=== PATIENT | female | born 1955 | race Caucasian/White ===

== ENCOUNTER 2024-12-11 15:23 | Outpatient (CLI) | payer OTHER, SELFPAY ==
--- OUTSIDE RECORDS SUMMARY | 2024-11-04 07:45 | XMS_ITS ---
Author Organization [facility] [place], Address [address] [place] [address] Care Team Providers Care Workers Compensation Legal Secretary Name Role Phone Austin Magaña MD Primary Care Provider Stanley Rizvi Unavailable [phone] REASON FOR VISIT Treadmill nuclear Encounters Encounter Location Date Provider Diagnosis [facility] [place] [address] [place] [address] 11/04/2024 Stanley Wellington Plan Of Treatment Next Appt Details Provider Name:Stanley ornelas, 07/27/2025 03:00:00 PM, [address] [place], [address], Progress Notes * Nichelle LUIS SDOB: [birth year] (69 yo F)Acc No.[id number]:11/04/2024 Patient: Nichelle SALMERON Provider: Latisha WELLINGTON MD :1955 A ge:69 Y S ex:Female Date:11/04/2024 Address:[address] [place], [place] Pcp:Austin Magaña MD * Images: * Electronic signature of Stanley Wellington MD on 12/11/2024 at 03:31 PM CDT Sign off status: Pending * Provider: Latisha WELLINGTON MD Date: 11/04/2024 Generated for Wesley ibrahim/Dorie/Kamillaitting on: 0 12/11/2024 03:31 PM CDT
--- OUTSIDE RECORDS SUMMARY | 2024-12-11 15:31 | XMS_ITS | Encounter Summary ---
Author Organization [facility] Address [facility] [place] [address] Care Team Providers Care Reexaminer Name Role Phone Austin Magaña MD Primary Care Provider Kiran Canales MD Unavailable Unavailabl Suellen Bear MD Unavailable Peter Nuñez MD Unavailable Unavailable Encounter Details Date Type Department Care Team (Late st Contact Info) Description 06/23/2017 Abstract [facility] [address] [place] [address] , Generic Conversion, Social History Tobacco Use Types Packs/Day Years Used Date Smoking Tobacco: Former Cigarettes Q uit: 1986 Smokeless Tobacco: Never Alcohol Use Standard Drinks/Week Comments Yes 0 (1 standard drink = 0.6 oz pur e alcohol) Drinks rare wine Comments Unknown Sex and Gender Information Value Date Recorded Sex Assigned at Not on file Legal Sex Female 9:30 PM CDT Gender Identity Not on file Sexual Orientation Not on file 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, 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, 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 Not on f ile Not on file Not on file documented as of this encounter Plan of Treatment Not on file documented as of this encounter Visit Diagnoses Not on filedocumented in this encounter Care Teams Reexaminer Relationship Specialty Start Date End Date Austin Magaña MD [address] [place], [place] [address] PCP - General INTERNAL MEDICINE 10/20/15 Kiran Canales MD [address] Carpenter Assembler CARDIOVASCULAR DISEASE 10/20/15 Suellen Kennedy MD [address] [place] [address] EP Carpenter Assembler CLINICAL CARDIAC ELECTROPHYSIOLOGY 10/20/15 Peter Nuñez MD [address] [place] [address] Consulting Physician ENDOCRINOLOGY 10/25/18 documented as of this encounter
--- OUTSIDE RECORDS SUMMARY | 2024-12-11 15:31 | XMS_ITS | Patient Health Record ---
Author Organization [facility], Address [address] [place] [address] Care Team Providers Care Refresh Technician Name Role Phone Austin Magaña MD Primary Care Provider Stanley Rizvi Unavailable [phone] Ada Rodriguez Unavailable [phone] Allergies Allergen (clinical drug ingredient) Drug/Non Drug Allergy documented on EMR Reaction Allergy Type Onset Date Status Substance with sulfonamide structure and antibacterial mechanism of action (substance) sulfa (uncoded) Unknown Allergy Active angiotensin-converting enzyme inhibitor (FN) GRETCHEN Inhibitors chronic cough Drug Allergy Act nena Penicillin Unknown Drug Allergy Active Reason For Referral No Information Medications Medication SIG (Take, Route, Frequency, Duration) Notes Start Date End Date Status cloNIDine HCl 0.1 MG 1 tablet Orally Once a day PRN Not-Taking Potassium Chloride ER 20 MEQ 1 tablet with food Orally Once a day Active metFORMIN HCl 500 MG 1 tablet with a meal Orally Once a day; Duration: 30 day(s) Active CeleBREX 200 MG 1 capsule with food Orally Once a day; Duration: 30 day(s) Active Restasis 0.05 % 1 drop into affected eye Ophthalmic Twice a day Active Krill Oil 1000 MG as directed Orally Not-Taking Vitamin B12 1000 MCG 1 tablet Orally Once a day; Duration: 30 day(s) Active Irbesartan 300 MG 1 tablet Orally Once a day; Duration: 30 day(s) Active Hair Skin and Nails Formula - as directed Orally Not-Takin g Metoprolol Succinate ER 50 MG 1 tablet Orally Once a day Active Lasix 20 MG 1 tablet Orally Once a day; Duration: 30 day(s) Active Magnesium Oxide 400 MG 1 tablet as needed Orally Twice a day Active Colace 100 MG 1 capsule as needed Orally Once a day; Duration: 30 day(s) Active Multivitamin 1 Tablet Orally Once a day Active Vitamin D 5000 UNITS 1 Tablet Orally Once a day three times a week Active Social History Tobacco Use: Social History Observation Description Date Details (start date - stop date) Never Smoker NA - NA Tobacco Use/Smoking Question Answer Notes Are you a nonsmoker Additional Findings: Tobacco Non-User Does not u se moist powdered tobacco Section Notes: 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 [facility] None smoker 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 [facility] None smoker 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 [facility] None smoker Problems Problem Type SNOMED Code ICD Code Onset Dates Problem Status W/U Status Risk Notes Problem Disorder due to type 2 diabetes mellitus (519965731) Type 2 diabetes mellitus with unspecified complications (E11.8) Active confirmed Problem Essential hypertension (06791344) Essential (primary) hypertension (I10) Active confirmed Problem Paroxysmal atrial fibrillation (166423103) Paroxysmal atrial fibrillation (I48.0) Active confirmed Problem Chest pain (79358256) Chest pain, unspecified (R07.9) Active confirmed Problem Angina pectoris (903839259) Other forms of angina pectoris (I20.89) Active confirmed Vital Signs Heart Rate 66 /min 11/07/2024 Blood pressure diastolic 62 mm Hg 11/07/2024 Height 5ft 4in in 11/07/2024 Blood pressure systolic 132 mm Hg 11/07/2024 Weight 150 lbs 11/07/2024 BMI 25.74 kg/m2 11/07/2024 Encounters Encounter Location Date Provider Diagnosis [facility] [place], [address] [place] [address] 11/04/2024 [facility] [place], [address] [place] [address] 07/14/2024 [facility] Paroxysmal atrial fibrillation I48.0 ; Type 2 diabetes mellitus with unspecified complications E11.8 and Essential (primary) hypertension I10 [facility] [place], [address] [place] [address] 11/07/2024 Ada Rodriguez Paroxysmal atrial fibrillation I48.0 ; Type 2 diabetes mellitus with unspecified complications E11.8 and Essential (primary) hypertension I10 [facility] [place] [address] [place] [address] 08/18/2024 [facility] [place] [address] [place] [address] 09/30/2024 [facility] [place] [address] [place] [address] 10/02/2024 [facility] [place] [address] [place] [address] 11/05/2024 [facility] [place] [address] [facility] [place] [address] 11/07/2024 [facility] [place] [address] [place] [address] 11/14/2024 [facility] Assessments Encounter Date Diagnosis (ICD Code) Assessment Notes Treatment Notes Treatment Clinical Notes Section Notes 07/14/2024 Paroxysmal atrial fibrillation (ICD-10 - I48.0) Paroxysmal atrial fibrillation She is s/p ablation in 2013 and repeat ablation 04/[address] [facility] Echo 04/23/2023 showed EF 60% Left atrium moderately dilated right atirum mildly dilated Trace AI Trace TR and MR She reports no chest pain Only 2 short episodes of atrial fib over last months longest 1 hour and 15 minutes She prefers to remain off anticoagulation at this time 11/07/2024 Paroxysmal atrial fibrillation (ICD-10 - I48.0) Paroxysmal atrial fibrillation She is s/p ablation in 2013 and repeat ablation 04/[address] [facility] Echo 04/23/2023 showed EF 60% Left atrium moderately dilated right atirum mildly dilated Trace AI Trace TR and MR She reports no chest pain Only 2 short episodes of atrial fib over last months longest 1 hour and 15 minutes She prefers to remain off anticoagulation at this time 11/07/2024 Type 2 diabetes mellitus with unspecified complications (ICD-10 - E11.8) 07/14/2024 Type 2 diabetes mellitus with unspecified complications (ICD-10 - E11.8) 07/14/2024 Essential (primary) hypertension (ICD-10 - I10) Hypertension BP mildly elevated this office visit but reports lower BP at home We will keep monitoring for now We will coronary calcium score at [facility] 11/07/2024 Essential (primary) hypertension (ICD-10 - I10) Hypertension Treadmill nuclear stress 11/04/24: small defect during stress that is a reversible perfusion abnormality of mild intensity in the mid anterior and paical anterior segments consistent with ischemia, EF 72% Left heart catheterization recommended. Risks and benefits were discussed, and the patient verbalized understanding and consented to proceed with the procedure. Plan Of Treatment Next Appt Details Provider Name:Stanley ornelas, 07/27/2025 03:00:00 PM, [address] [place], [address], Insurance Providers Payer Name Payer Address Payer Phone Subscriber Number Group Number Insured Name Patient Relationship to Insured Coverage Start Date Coverage End Date [employer] [address] [address] [place] [address] [id number] Rosalva, Nichelle Self - patient is the insured Medical (General) History Medical History History ICD Code Other forms of angina pectoris I20.89 Surgical History Surgery Date(Month/Year) Cholecystectomy, gastric sleeve surgery, Right TKA and left TKA
--- OUTSIDE RECORDS SUMMARY | 2024-12-11 15:31 | XMS_ITS | Clinical Summary ---
Author Organization [facility] Address [facility] [place] [address] Care Team Providers Care Vocational Childcare Teacher Name Role Phone Austin Magaña MD Primary Care Provider [phone] Kiran Canales MD Unavailable UnavailSuellen Huston MD Unavailable Peter Nuñez MD Unavailable Unavailable Allergies Active Allergy Reactions Criticality Noted Date Comments Brad Inhibitors Cough 11/04/2015 Amiodarone Unknown 05/15/2016 tremors Carvedilol Unknown 03/27/2019 Omeprazole Unknown High 05/12/2016 Joint pain Penicillins Swelling,Itching High 08/06/2013 Ranitidine Unknown High 05/12/2016 Joint pain Spironolactone Myalgias 11/15/2018 Sulfa Antibiotics Swelling,Itching High 08/06/2013 Medications docusate sodium (COLACE) 100 MG capsule Colace (docusate sodium) capsule 100 mg; 1 capsule by mouth once a day; 0; 03-Mar-2015; Active 03/03/2015 Active Lutein (KP LUTEIN) 6 MG Cap Take 1 tablet by mouth daily. 01/28/2014 Active magnesium oxide 400 (241.3 MG) MG tablet Take 1 tablet by mouth 2 (two) times daily. 12/11/2012 Active diclofenac sodium (VOLTAREN) 1 % Gel Voltaren (diclofenac sodium) Gel 1%; applied to knees as needed; 0; 0; 07-Sep-2011; Active 09/07/2011 Active VICTOZA 18 MG/3ML injection ADM 1.2 MG SC QD 1 10/11/2018 Active metFORMIN 500 MG tablet Take 1 tablet (500 mg total) by mouth daily with breakfast. 60 tablet 11/15/2018 Active IRBESARTAN 300 MG tablet TAKE 1 TABLET(300 MG) BY MOUTH DAILY 90 tablet 3 01/14/2019 Active biotin 89217 MCG tablet Take 10,000 mcg by mouth daily. Active cholecalciferol (VITAMIN D3) 125 MCG (5000 UT) Tab Take 5,000 Units by mouth. Mon - Fri Active Cyanocobalamin [address] under the tongue 3 (three) times a week. Active furosemide 20 MG tablet Take 20 mg by mouth 2 (two) times daily. Active potassium chloride CR 20 MEQ tablet Take 20 mEq by mouth daily. Active metoprolol succinate ER 25 MG 24 hr tablet Take 1 tablet (25 mg total) by mouth 2 (two) times daily. 180 tablet 3 04/01/2019 Active dilTIAZem CD 180 MG 24 hr capsule Take 1 capsule (180 mg total) by mouth daily. 90 capsule 3 04/01/2019 Active amLODIPine 5 MG tablet Take 1 tablet (5 mg total) by mouth daily. 90 tablet 4 02/23/2020 Active Active Problems Problem Noted Date Diagnosed Date Arthritis 04/04/2018 DM (diabetes mellitus) ([facility]) 018 Primary osteoarthritis of both knees 02/05/2018 Hypertension 04/24/2017 Paroxysmal atrial fibrillation ([facility]) 04/24/2017 Overview (04/24/2017): refractory to amiodarone therapy, s/p left atrial ablation and pulmonary vein isolation on 02/19/2014 and redo on 04/13/2016 Low back pain 03/16/2016 Sacroiliac dysfunction 03/16/2016 Chronic anticoagulation 03/08/2016 PVC (premature ventricular contraction) 02/21/20 16 PAC (premature atrial contraction) 02/21/2016 Atrial tachycardia ([facility]) 11/04/2015 Persistent atrial fibrillation ([facility]) 09/29/2015 Heart palpitations 09/29/2015 Obesity 11/23/2014 Resolved Problems Problem Noted Date Diagnosed Date Resolved Date Pre-operative cardiovascular examination 04/04/2018 12/19/2019 Family History Medical History Relation Comments Coronary artery disease Brother Heart Disease Brother AICD Hypertension Brother with hypertensiv e heart disease Lung Cancer Father Heart Disease Mother atrial fibrillat ion Diabetes Sister 1 Hypertension Sister 1 Kidney Disease Sister 1 Kidney Stones Sister 2 Relation Status Comments Brother Father (Age 58) Mother (Age 76) Sister 1 (Age 62) Sister 2 Social History Tobacco Use Types Packs/Day Years Used Date Smoking Tobacco: Former Cigarettes Q uit: 1985 Smokeless Tobacco: Never Alcohol Use Standard Drinks/Week [...] ile Not on file Not on file Last Filed Vital Signs Vital Sign Reading Time Taken Comments Blood Pressure 124/78 03/30/2020 12:39 PM ENVIRONMENTAL ANALYST Pulse 68 03/30/2020 12:39 PM ENVIRONMENTAL ANALYST Temperature - - Respiratory Rate 15 03/30/2020 12:39 PM ENVIRONMENTAL ANALYST Oxygen Saturation - - Inhaled Oxygen Concentration - - Weight 92.1 kg (203 lb) 03/30/2020 12:39 PM ENVIRONMENTAL ANALYST Height 160 cm (5' 3) 03/30/2020 12:39 PM ENVIRONMENTAL ANALYST Body Mass Index 35.96 03/30/2020 12:39 PM ENVIRONMENTAL ANALYST Plan of Treatment Health Maintenance Due Date Last Done Comments Colorectal Cancer Screening Colonoscopy (10 Years) 1955 Kidney Health Evaluation 1955 Diabetes: Retinopathy Eye Exam 1974 Hepatitis C 1974 DTaP, Tdap and Td Vaccines ( 1 - Tdap) 07/05/1975 Pneumococcal Vaccine: 50+ Years (1 of 2 - PCV) 07/05/1975 Mammogram Screening 1996 Zoster Vaccines (1 of 2) 2006 Lipid Panel 03/26/2015 03/26/2014 RSV Immunization or 60+ Years (1 - Risk 60-74 years 1-dose series) 2016 Hemoglobin A1C 06/30/2020 01/01/2020, 06/07/2018 COVID-19 Vaccine (2 - 2023-2 5 season) 2023 03/24/2020 Dexa Scan (General) Completed 11/21/2018 Meningococcal B Vaccine Aged Out No l onger eligible based on patient's age to complete this topic Meningococcal Vaccine Aged Out No jose beth eligible based on patient's age to complete this topic RSV Immunizations Under 20 Months Aged Out No longer eligible b ased on patient's age to complete this topic Procedures Procedure Name Priority Date/Time Associated Diagnosis Comments LIPID PANEL Routine 03/26/2014 12:00 AM ENVIRONMENTAL ANALYST from Last 3 Months or Most Recently Relevant to Health Maintenance Results * LIPID PANEL (03/26/2014 12:00 AM ENVIRONMENTAL ANALYST) TRIGLYCERIDES 86 0 - 150 mg/dl [employer] TO EPIC CONVERSION CHOLESTEROL 195 0 - 200 mg/dl [employer] TO EPIC CONVERSION HDL 60 40 - 59 mg/dl [employer] TO EPIC CONVERSION LDL CONVERSION 118 0 - 100 mg/dl [employer]IN[employer] TO EPIC CONVERSION CHOL/HDL RATIO 3.3 <4.0 (Calc) MEDIN[employer] TO EPIC CONVERSION VLDL CALCULATION 17 <31 mg/dL MED INFORMATIX TO EPIC CONVERSION 03/26/2014 03/26/2014 Narrative MEDINFORMATIX TO EPIC CONVERSION - 04/14/2014 8:08 AM ENVIRONMENTAL ANALYST Reviewed by DIMPLE Apr 14 2014 8:08:33:000AM us Generic Conversion Md [facility] Final R esult MEDINFORMATIX TO EPIC CONVERSION from Last 3 Months or Most Recently Relevant to Health Maintenance Insurance [employer] Care Teams Vocational Childcare Teacher Relationship Specialty Start Date End Date Austin Magaña MD [address] [place] [address] PCP - General INTERNAL MEDICINE 10/20/15 Kiran Canales MD [address] [place] [address] [employer] Virtual Assistant CARDIOVASCULAR DISEASE 10/20/15 Suellen Kennedy MD [address] [place] [address] EP Virtual Assistant CLINICAL CARDIAC ELECTROPHYSIOLOGY 10/20/15 Peter Nuñez MD [address] [place] [address] Consulting Physician ENDOCRINOLOGY 10/25/18
--- OUTSIDE RECORDS SUMMARY | 2024-12-11 15:31 | XMS_ITS | Encounter Summary ---
Author Organization [facility] Address [facility] [place] [address] Care Team Providers Care Marketing Operations Specialist Name Role Phone Austin Magaña MD Primary Care Provider Kiran Canales MD Unavailable Unavailabl Suellen Bear MD Unavailable Peter Nuñez MD Unavailable Unavailable Encounter Details Date Type Department Care Team (Late st Contact Info) Description 03/02/2015 Abstract [facility] [place] [address] [place] [address] Kiran Canales MD Social History Tobacco Use Types Packs/Day Years [...] on filedocumented in this encounter Care Teams Marketing Operations Specialist Relationship Specialty Start Date End Date Austin Magaña MD [address] [place], [place] [address] PCP - General INTERNAL MEDICINE 10/20/15 Kiran Canales MD [address] Director Of Retail Operations CARDIOVASCULAR DISEASE 10/20/15 Suellen Kennedy MD [address] [place] [address] EP Director Of Retail Operations CLINICAL CARDIAC ELECTROPHYSIOLOGY 10/20/15 Peter Nuñez MD [address] [place] [address] Consulting Physician ENDOCRINOLOGY 10/25/18 documented as of this encounter
--- OUTSIDE RECORDS SUMMARY | 2024-12-11 15:31 | XMS_ITS | Encounter Summary ---
Author Organization [facility] Address [facility] [place] [address] Care Team Providers Care Multi Operation Machine Operator Name Role Phone Austin Magaña MD Primary Care Provider Kiran Canales MD Unavailable Unavailabl Suellen Bear MD Unavailable Peter Nuñez MD Unavailable Unavailable Encounter Details Date Type Department Care Team (Late st Contact Info) Description 11/02/2015 Abstract [facility] [place] [address] [place] [address] Kiran Canales MD Social History [...] on filedocumented in this encounter Care Teams Multi Operation Machine Operator Relationship Specialty Start Date End Date Austin Magaña MD [address] [place], [place] [id number] PCP - General INTERNAL MEDICINE 10/20/15 Kiran Canales MD [address] Grab Driver CARDIOVASCULAR DISEASE 10/20/15 Suellen Kennedy MD [address] [place] [address] EP Grab Driver CLINICAL CARDIAC ELECTROPHYSIOLOGY 10/20/15 Peter Nuñez MD [address] [place] [address] Consulting Physician ENDOCRINOLOGY 10/25/18 documented as of this encounter
--- OUTSIDE RECORDS SUMMARY | 2024-12-11 15:31 | XMS_ITS | Encounter Summary ---
Author Organization [facility] Address [address] [place] [address] Care Team Providers Care Vocational Rehabilitation Specialist Name Role Phone Austin Magaña MD Primary Care Provider [phone] Hazel Butler DO Unavailable [phone] Kel Gonzalez MD Unavailable Reason for Visit * Reason Onset Date Comments Results 11/11/2024 Encounter Details Date Type Department Care Team (Late st Contact Info) Description 11/11/2024 Results Follow-Up [facility] [address] [place] [address] Hazel Butler DO [address], [place] [id number] Results Social History Tobacco Use Types Packs/Day Years Used Date Smoking Tobacco: Former Cigarettes Q uit: 04/09/1986 Smokeless Tobacco: Never Alcohol Use Standard Drinks/Week Comments Yes 0 (1 standard drink = 0.6 oz pur e alcohol) rare PHQ-2 Answer Date Recorded Patient Health Questionnaire-2 Score 0 10/06/2024 Comments No Sex and Gender Information Value Date Recorded Sex Assigned at Female 02/28/2020 8:07 AM SENIOR DESIGN ENGINEERING SPECIALIST Legal Sex Female 5:16 AM SENIOR DESIGN ENGINEERING SPECIALIST Gender Identity Female 02/28/2020 8:08 AM SENIOR DESIGN ENGINEERING SPECIALIST Sexual Orientation Straight 02/28/2020 8: 07 AM SENIOR DESIGN ENGINEERING SPECIALIST documented as of this encounter Functional Status * Is person deaf or have serious hearing difficulty? Answer Date of Assessment Author No 09/12/2018 11:23 AM CDT Pravin Arvizu RN * Is person blind or have serious difficulty seeing? Answer Date of Assessment Author No 09/12/2018 11:23 AM CDT Pravin Arvizu RN * Does person have serious difficulty walking/climbing stairs? Answer Date of Assessment Author No 09/12/2018 11:23 AM CDT Pravin Arvizu RN * Does person have difficulty dressing/bathing? Answer Date of Assessment Author No 09/12/2018 11:23 AM CDT Pravin Arvizu RN * Does person have difficulty doing errands alone? Answer Date of Assessment Author No 09/12/2018 11:23 AM CDT Pravin Arvizu RN documented as of this encounter Mental Status * Does person have difficulty concentrating/remembering/making decisions? Answer Entry Date Author No 09/12/2018 11:23 AM [place] Pravin Arvizu RN documented in this encounter Progress Notes * Hazel Butler DO - 11/11/2024 8:14 AM CDT Please notify pt test results . Vitamin B1 is normal. B12 folate normal. Ferritin normal. A1c normal. Iron and transferrin normal. documented in this encounter Plan of Treatment Upcoming Encounters Date Type Department Care Team (Late st Contact Info) Description 01/05/2025 11:30 AM CDT Office Visit [facility] [address] [place] [address] Haezl Butler DO [address] [place] [address] 01/26/2025 3:20 PM CDT Office Visit [facility] - Endocrinology [address] Kw[address] [phone] Kel Gonzalez MD [address] [place] [phone] documented as of this encounter Visit Diagnoses Not on filedocumented in this encounter Care Teams Vocational Rehabilitation Specialist Relationship Specialty Start Date End Date Austin Magaña MD [address] [facility] [address] [place] [id number] PCP - General Internal Medicine 07/11/13 Hazel Butler DO [address], [place] [phone] PCP - Att[facility] [facility] 04/09/21 Kel Gonzalez MD [address] [phone] Physician Endocrinology 11/07/24 documented as of this encounter
--- OUTSIDE RECORDS SUMMARY | 2024-12-11 15:31 | XMS_ITS | Clinical Summary ---
Author Organization [facility] Address [address] [place] [address] Care Team Providers Care Behavioral Scientist Name Role Phone Austin Magaña MD Primary Care Provider [phone] Hazel Butler DO Unavailable [phone] Kel Gonzalez MD Unavailable Source Comments [facility],non-owned Affiliates and Associated Physician Practices is amultiple site organization consisting of ambulatory clinics and hospital sitesin [place], [place] and [place]. This disclosure is being madepursuant to the Care Everywhere program and may not contain all information available regarding this patient. Last updated 17.[facility] Allergies Active Allergy Reactions Criticality Noted Date Comments Brad Inhibitors Cough 11/04/2015 Amiodarone Unknown 07/03/2018 tremors Carvedilol Other 03/27/2019 Penicillins Itching High 08/06/2013 Spironolactone Myalgias 11/15/2018 Sulfa Drugs Itching High 08/06/2013 Medications * Be aware that medications may not be up to date on this document. Alwaysverify current medications with the patient. Magnesium 400 MG CAPS Take 1 Cap by mouth 2 times daily after meals. 4 Active Cholecalcifero l (VITAMIN D-3 PO) Take 5,000 Units by mouth once daily Taking 3 times weekly Active docusate sodium (COLACE) 100 MG capsule Take 1 (one) capsule by mouth once daily Active metFORMIN (GLUCOPHAGE) 500 MG tablet once daily 2 9 Active furosemide (LASIX) 20 MG tablet Take 1 (one) tablet by mouth once daily 1 9 Active irbesartan (AVAPRO) 300 MG tablet 1 (one) tablet once daily 0 9 Active celecoxib (CELEBREX) 200 MG capsule Take 1 capsule by mouth 2 times daily 60 capsule 5 0 Active Restasis 0.05 % ophthalmic suspension 3 Active Multiple Vitamin (MULTIVITAMIN ADULT PO) Take by mouth once daily Alive Brand Active amoxicillin (Amoxil) 500 MG capsule 4 Active potassium chloride ER (K-TAB) 20 MEQ tablet Take 1 (one) tablet by mouth once daily 4 Active metoprolol succinate XL 24hr (Toprol XL) 50 MG tablet TAKE ONE TABLET BY MOUTH TWICE DAILY HOLD IF SYSTOLIC BLOOD PRESSURE IS LESS THAN 120 AND/OR HEART RATE IS LESS THAN 56 4 Active cinacalcet (Sensipar) 30 MG tablet Take 1 (one) tablet by mouth 2 times daily with morning and evening meal 180 tablet 4 Active tirzepatide (Mounjaro) 15 MG/0.5ML injectionIndic ations:Type 2 diabetes mellitus with obesity (HCC) Inject 15 (fifteen) mg subcutaneously every 7 days (once a week) 2 mL 2 5 Active Active Problems Problem Noted Date Diagnosed Date Hyperparathyroidism 07/28/2024 Assessment & Plan (07/28/2024 4:38 PM CDT): See above. Hypercalcemia 07/28/2024 Assessment & Plan (07/28/2024 4:38 PM CDT): Previous parathyroid imaging negative. Opted for medical treatment. On sensipar 30 mg bid Due for labs. Ordered. Osteopenia 07/28/2024 Assessment & Plan (07/28/2024 4:40 PM CDT): Discussed weight bearing exercise, vitamin D3, and adequate dietary calcium Next DXA after 10/30/2025. Nontoxic multinodular goiter 07/28/2024 Assessment & Plan (07/28/2024 4:39 PM CDT): Two right sided nodules, previously biopsied, benign cytology Thyroid US 03/2023 with stable nodules No neck symptoms Recommend repeating US in late 2024 (two years from latest scan) History of bariatric surgery 09/26/2021 Primary osteoarthritis of left knee 06/24/2019 Primary osteoarthritis of both knees 02/05/2018 Low back pain 03/16/2016 Sacroiliac dysfunction 03/16/2016 Obesity, Class I, BMI 30-34.9 11/23/2014 DM (diabetes mellitus) Assessment & Plan (07/28/2024 4:40 PM CDT): In remission Discussed option to gradually decrease mounjaro. Paroxysmal atrial fibrillation Arthritis HTN (hypertension) Encounters Date Type Department Care Team Description 11/11/2024 1:30 PM CDT - 11/11/2024 2:45 PM CDT Surgery [facility] - Cardiac [facility] [employer] [facility] [address] [place] [address] Stanley Wellington MD Left Heart Cath 11/11/2024 11:38 AM CDT - 11/11/2024 6:46 PM CDT Hospital Encounter [facility] [address] [place] [address] Stanley Wellington MD Cardiac Catheterization Discharge Disposition: Home or Self Care 11/11/2024 11:27 AM CDT - 11/11/2024 11:37 AM CDT Hospital Encounter [facility] [address] [place] [address] Stanley Wellington MD Discharge Disposition: Home or Self Care 11/11/2024 Travel 11/11/2024 Results Follow-Up [facility] [address] [place] [address] Hazel Butler DO Results 11/10/2024 2:30 PM CDT [facility] [address] [place] [phone] Aniceto Gr, PhD Sensorineural hearing loss (SNHL) of both ears (Primary Dx) 11/10/2024 Travel 11/07/2024 Orders Only [facility] - Endocrinology 2 [facility] [address] [place] [address] Kel Gonzalez MD Hypercalcemia 11/07/2024 Results Follow-Up [facility] - Endocrinology 2 [facility], [facility] [address] [place] [phone] Kel Gonzalez MD 11/05/2024 3:15 PM CDT - 11/05/2024 11:59 PM CDT Hospital Encounter [facility] [address] [place] [address] Kel Gonzalez MD Endocrinology Discharge Disposition: Home or Self Care 11/05/2024 1:52 PM CDT - 11/05/2024 3:14 PM CDT Hospital Encounter [facility] - Lab [address] [place] [address] Zainab Mcdaniel APRN-IDENTIFICATION AND RECORDS COMMANDER Discharge Disposition: Home or Self Care 11/05/2024 Travel 10/06/2024 11:30 AM CDT Office Visit [facility] [address] [place] [address] Hazel Butler, Overweight with body mass index (BMI) of 27 to 27.9 in adult (Primary Dx); Type 2 diabetes mellitus with obesity (HCC); S/P laparoscopic sleeve gastrectomy; Hyperparathyroidism (HCC); History of kidney stones; Primary hypertension; History of bariatric surgery 09/19/2024 2:00 PM CDT - 09/19/2024 11:59 PM CDT Hospital Encounter [facility] - CT Scan 1 [place] [address] Stanley Wellington MD Discharge Disposition: Home or Self Care 09/16/2024 Travel from Last 3 Months Immunizations Immunization Administration Dates Next Due Covid Pfizer primary monoval ent 12+ yr 0.3mL Purple cap 09/09/2021,02/01/2021,04/14/2020,2019 Family History Medical History Relation Name Comments Cancer - Colon Brother Cancer - Lung Father Other Mother sudden Cancer - Breast Paternal Cousin cousin Renal Disease Sister Cancer - Ovarian Neg Hx Relation Name Status Comments Brother Father Mother Paternal Cousin Other Sister Social History Tobacco Use Types Packs/Day Years Used Date Smoking Tobacco: Former Cigarettes Q uit: 04/09/1986 Smokeless Tobacco: Never Tobacco Cessation:Counseling Given: Not Answered Alcohol Use Standard Drinks/Week Comments Yes 0 (1 standard drink = 0.6 oz pur e alcohol) rare PHQ-2 Answer Date Recorded Patient Health Questionnaire-2 Score 0 10/06/2024 Comments No Sex and Gender Information Value Date Recorded Sex Assigned at Female 02/28/2020 8:07 AM HEALTH CARE RECRUITER Legal Sex Female 5:16 AM HEALTH CARE RECRUITER Gender Identity Female 02/28/2020 8:08 AM HEALTH CARE RECRUITER Sexual Orientation Straight 02/28/2020 8: 07 AM HEALTH CARE RECRUITER Last Filed Vital Signs Vital Sign Reading Time Taken Comments Blood Pressure 135/77 11/11/2024 6:30 PM CDT Pulse 64 11/11/2024 6:30 PM CDT Temperature 36.5 C (97.7 F) 11/11/2024 2:35 PM CDT Respiratory Rate 21 11/11/2024 4:00 PM CDT Oxygen Saturation 99% 11/11/2024 6:30 PM CDT Inhaled Oxygen Concentration - - Weight 68.9 kg (152 lb) 11/11/2024 1:48 PM CDT Height 160 cm (5' 3) 11/11/2024 1:48 PM CDT Body Mass Index 26.93 11/11/2024 1:48 PM CDT Plan of Treatment Upcoming Encounters Date Type Department Care Team (Late st Contact Info) Description 01/05/2025 11:30 AM CDT Office Visit [facility] [address] [place] [address] Hazel Butler DO [address] [place] [address] 01/26/2025 3:20 PM CDT Office Visit [facility] [address] [phone] Kel Gonzalez MD [address] [place] [address] Health Maintenance Due Date Last Done Comments COLOGUARD (AGES 45-75) - COLON CA SCREENING 1955 COLON MONITORING 1956 COLONOSCOPY - COLON CA SCREENING 1956 CT COLONOGRAPHY - COLON CA SCREENING 1955 Colorectal Cancer Screening 1955 FIT - COLON CA SCREENING 1956 FLEX SIG - COLON CA SCREENING 1955 HEPATITIS C SCREENING 06/30/1974 DTAP/TDAP/TD VACCINES (1 - Tdap) 07/05/1975 PNEUMOCOCCAL VACCINE 50+ (1 of 2 - PCV) 07/05/1975 DIABETES-STATIN 1996 ZOSTER VACCINE (1 of 2) 2006 DIABETES-FOOT EXAM WITH MONOFILAMENT 05/28/2018 DIABETES - URINE PROTEIN SCREENING 04/09/2024 COVID-19 VACCINE ( season) 2024 09/09/2021, 02/01/2021, 04/14/2020, Additional history exists INFLUENZA VACCINE (#1) 2024 0 (Done Outside Per Patient), 01/17/2019 (Done Outside Per Patient), 01/23/2018 (Done Outside Per Patient) DIABETES-HGB A1C 05/08/2025 11/05/2024, 09/2023, 08/10/2021, Additional history exists DIABETES-SERUM CREATININE 11/11/20252024, 11/05/2024, 03/13/2024, Additional history exists MAMMOGRAM 03/20/2026 03/20/2024, 01/09, 01/03/2022, Additional history exists DIABETES RETINOPATHY SCREENING 06/18/2026 06/18/2024, 06/18/2024, 08/23/2022 (Done Outside Per Patient), Additional history exists Respiratory Syncytial Virus (RSV) Vaccine Pt: or over 60 yrs (1 - 1-dose 75+ series) 07/05/2031 BONE DENSITY TESTING Completed 11/01/2023, 11/25/2020, 11/21/2018 DEPRESSION SCREENING Completed 06/30/2024, 06/27/2023, 02/23/2023 HEPATITIS B VACCINE Aged Out No longe r eligible based on patient's age to complete this topic HIB VACCINE Aged Out No longer eligi ble based on patient's age to complete this topic HPV VACCINE Aged Out No longer eligi ble based on patient's age to complete this topic MENINGOCOCCAL (Group B) VACCINE SHARED DECISION-MAKING Aged Out No longer eligible based on patient's age to complete this topic MENINGOCOCCAL GROUPS A/C/Y/W VACCINE Aged Out No longer eligible based on patient's age to complete this topic Medical Devices Implanted Type Area Resin Shaver Device Identifier Shelf Expiration Date Model / Serial / Lot Cmnt Bone Cblt 40gm Hvisc Strl Implanted:Qty: 1 on 09/09/2018 by Silverio Sam MD at [facility] Right: Knee [employer] 08/10/2019 600-15-000 / / [id number] Cmpnt Ptlr 28mm 1 Pg Wire Ascnt Arcm Kn Implanted:Qty: 1 on 09/09/2018 by Silverio Sam MD at [facility] Right: Knee [employer] 07/11/2023 [id number] / / [id number] Cmpnt Fem Kn Rt Cr Cmnt Prm Vngrd Intlk Implanted:Qty: 1 on 09/09/2018 by Silverio Sam MD at [facility] Right: Knee [employer] 06/09/2028 [id number] / / [id number] Tray Tib 71mm Kn Cocr I Beam Implanted:Qty: 1 on 09/09/2018 by Silverio Sam MD at [facility] Right: Knee [employer] 06/09/2028 [id number] / / [id number] Brng [id number] Vngrd Arcm Kn Ant Stab Implanted:Qty: 1 on 09/09/2018 by Silverio Sam MD at [facility] Right: Knee [employer] 06/10/2023 [id number] / / [id number] Brng [id number] Vngrd Arcm Kn Ant Stab Implanted:Qty: 1 on 02/12/2020 by Silverio Sam MD at [facility] Left: Knee [employer] 12/12/2024 [id number] / / [id number] Cmnt Bone Djo Srg Cblt 40gm Hvisc Strl Implanted:Qty: 1 on 02/12/2020 by Silverio Sam MD at [facility] Left: Knee [employer] 12/12/2020 600-15-000 / / [id number] Tray Tib 71mm Kn Cocr I Beam Implanted:Qty: 1 on 02/12/2020 by Silverio Sam MD at [facility] Left: Knee [employer] 10/11/2029 [id number] / / [id number] Cmpnt Fem Kn Lt Cr Cmnt Prm Vngrd Intlk Implanted:Qty: 1 on 02/12/2020 by Silverio Sam MD at [facility] Left: Knee [employer] 11/11/2029 [id number] / / [id number] Cmpnt Ptlr 28mm 1 Pg Wire Ascnt Arcm Kn Implanted:Qty: 1 on 02/12/2020 by Silverio Sam MD at [facility] Left: Knee [employer] 11/11/2024 [id number] / / [id number] Procedures Procedure Name Priority Date/Time Associated Diagnosis Comments CCL LEFT HEART CATH Routine 11/11/2024 2 :24 PM CDT Angina pectoris EKG 12-LEAD Routine 11/11/2024 12:55 PM CDT Angina pectoris CBC W AUTO DIFFERENTIAL STAT 11/11/2024 12:38 PM CDT Angina pectoris BASIC METABOLIC PANEL (CALCIUM TOTAL) STAT 11/11/2024 12:38 PM CDT Angina pectoris FERRITIN Routine 11/05/2024 3:16 PM CDT S/P laparoscopic sleeve gastrectomy IRON + TRANSFERRIN PANEL Routine 11/05/2024 3:16 PM CDT S/P laparoscopic sleeve gastrectomy VITAMIN B1 Routine 11/05/2024 3:16 PM CDT S/P laparoscopic sleeve gastrectomy VITAMIN B12 FOLATE PANEL Routine 11/05/2024 3:16 PM CDT S/P laparoscopic sleeve gastrectomy HEMOGLOBIN A1C Routine 11/05/2024 3:16 PM CDT Type 2 diabetes mellitus with obesity (HCC) PHOSPHORUS BLOOD Routine 11/05/2024 3:16 PM CDT Hyperparathyroidism (HCC) VITAMIN D 25-HYDROXY Routine 11/05/2024 3:16 PM CDT Hyperparathyroidism (HCC) Hypercalcemia MAGNESIUM BLOOD Routine 11/05/2024 3:16 PM CDT Hyperparathyroidism (HCC) Hypercalcemia PTH INTACT Routine 11/05/2024 3:16 PM CDT Hypercalcemia CBC W AUTO DIFFERENTIAL Routine 11/05/2024 2:14 PM CDT Routine general medical examination at a health care facility LIPID PROFILE Routine 11/05/2024 2:14 PM CDT Routine general medical examination at a health care facility TSH Routine 11/05/2024 2:14 PM CDT Routine general medical examination at a [facility] care facility COMPREHENSIVE METABOLIC PANEL Routine 11/05/2024 2:14 PM CDT Routine general medical examination at a health care facility CT CORONARY CALCIUM SCORING Routine 09/19/2024 2:48 PM CDT History of diabetes mellitus, type II MAMMO BILAT SCREENING W WONG Routine 03/20/2024 1:32 PM HEALTH CARE RECRUITER Visit for screening mammogram DEXA BONE DENSITY AXIAL SKELETON Routine 11/01/2023 4:52 PM CDT Hyperparathyroidism Hypercalcemia from Last 3 Months or Most Recently Relevant to Health Maintenance Results * CCL LEFT HEART CATH (11/11/2024 2:24 PM CDT) Pathologist [facility] Ejection Fraction 60 % SS CV FUJI PACS Anatomical Region Laterality Modality X-Ray Angiograph y Narrative 11/11/2024 2:34 PM CDT The left ventricular systolic function is normal. There are no wall motion abnormalities in the left ventricle. LVEDP: 10 mmHg. Calculated ejection fraction: 60%. Angiographically normal epicardial coronary arteries . Procedure Details Estimated Blood Loss: 5 mL Coronary Findings Diagnostic Dominance: Left Left Main: The vessel was visualized by selective angiography, is moderate in size and is angiographically normal. Left Anterior Descending: The vessel is angiographically normal. Left Circumflex: The vessel is angiographically normal. LCX is a dominant vessel Left Posterior Descending Artery: The vessel is angiographically normal. First Left Posterolateral Branch: The vessel is angiographically normal. Right Coronary Artery: The vessel is small in size and is angiographically normal. Intervention No interventions have been documented. Left Ventricle The left ventricular size is normal. The left ventricular systolic function is normal. LV systolic pressure is normal. LV end diastolic pressure is normal. LVEDP: 10 mmHg. Calculated ejection fraction: 60%. There are no wall motion abnormalities in the left ventricle. There is no evidence of mitral regurgitation. us Stanley Wellington MD CV CARDIAC CATH CUPID PROCS F inal Result * EKG 12-LEAD (11/11/2024 12:55 PM CDT) Ventricular Rate 59 BPM [facility] MUSE Atrial Rate 59 BPM [facility] MUSE P-R Interval 154 ms [facility] MUSE QRS Duration ms 82 ms [facility] MUSE Q-T Interval ms 406 ms [facility] MUSE QTC Calculation (Bezet) 401 ms [facility] MUSE Calculated P [place] 91 degrees [facility] MUSE Calculated R [place] 33 degrees [facility] MUSE Calculated T [place] 6 degrees GSAM MUSE Interpretation EKG Sinus bradycardia with Premature supraventricular complexes Otherwise normal ECG No previous ECGs available Confirmed by MD STEPHANIE, STANLEY Reynoso ([id number]) on 11/11/2024 3:30:45 PM GS MUSE 11/11/2024 12:5 5 PM CDT 11/11/2024 3:30 PM CDT us Stanley Wellington MD ECG ORDERABLES Edited Result - Final [facility]ER[facility] * (ABNORMAL) CBC W AUTO DIFFERENTIAL (11/11/2024 12:38 PM CDT) Only the most recent of2 resultswithin the time period is included. WBC 6.2 4.0 - 10.7 x10E9/L 11/11/2024 12:46 PM CDT [facility] RBC Count 3.86(L) 3.90 - 5.20 x10E12/L 11/11/2024 12:46 PM CDT [facility] Hemoglobin 12.3 11.9 - 15.8 g/dL 11/11/2024 12:46 PM CDT [facility] Hematocrit 37.8 34.8 - 46.1 % 11/11/2024 12:46 PM CDT [facility] MCV 97.9 80.0 - 98.0 fL 11/11/2024 12:46 PM CDT [facility] MCH 31.9 26.7 - 33.6 pg 11/11/2024 12:46 PM CDT AM [facility] MCHC 32.5 31.7 - 36.3 g/dL 11/11/2024 12:46 PM CDT [facility] RDW-CV 12.4 11.3 - 14.8 % 11/11/2024 12:46 PM CDT [facility] Platelet Count 263 150 - 420 x10E9/L 11/11/2024 12:46 PM CDT [facility] MPV 9.6 7.8 - 11.4 fL 11/11/2024 12:46 PM CDT [facility] Neutrophil % 59.0 41.0 - 74.0 % 11/11/2024 12:46 PM CDT [facility] Lymphocyte % 31.8 17.0 - 47.0 % 11/11/2024 12:46 PM CDT [facility] Monocyte % 6.6 3.0 - 11.0 % 11/11/2024 12:46 PM CDT [facility] Eosinophil % 1.9 0.0 - 7.0 % 11/11/2024 12:46 PM CDT [facility] Basophil % 0.5 0.0 - 1.6 % 11/11/2024 12:46 PM CDT [facility] Immature Granulocytes % 0.2 0.0 - 1.0 % 11/11/2024 12:46 PM CDT [facility] Neutrophil Absolute 3.65 1.60 - 7.50 x10E9/L 11/11/2024 12:46 PM CDT [facility] Lymphocyte Absolute 1.97 1.00 - 4.40 x10E9/L 11/11/2024 12:46 PM CDT [facility] Monocyte Absolute 0.41 0.15 - 1.00 x10E9/L 11/11/2024 12:46 PM CDT [facility] Eosinophil Absolute 0.12 0.00 - 0.60 x10E9/L 11/11/2024 12:46 PM CDT [facility] Basophil Absolute 0.03 0.00 - 0.13 x10E9/L 11/11/2024 12:46 PM CDT AM [facility] Blood BLOOD SPECIMEN / Unknown Venipuncture / Unknown 11/11/2024 12:38 PM CDT 11/11/2024 12:41 PM CDT us Stanley Wellington MD LAB - HEMATOLOGY ORDERABLES F inal Result [facility] [address] [place], [place] [address] * (ABNORMAL) BASIC METABOLIC PANEL (CALCIUM TOTAL) (11/11/2024 12:38 PM CDT) Glucose 78 70 - 125 mg/dL 11/11/2024 12:56 PM CDT [facility] Sodium 142 136 - 145 mmol/L 11/11/2024 12:56 PM CDT [facility] Potassium 4.5 3.4 - 5.1 mmol/L 11/11/2024 12:56 PM CDT [facility] Chloride 109(H) 98 - 107 mmol/L 11/11/2024 12:56 PM CDT [facility] CO2 28 22 - 29 mmol/L 11/11/2024 12:56 PM CDT [facility] Calcium 10.72(H) 8.4 - 10.2 mg/dL 11/11/2024 12:56 PM T [facility] Anion Gap 5(L) 6 - 16 mmol/L 11/11/2024 12:56 PM CDT [facility] BUN 16.5 9.8 - 20.1 mg/dL 11/11/2024 12:56 PM T [facility] Creatinine 0.80 0.57 - 1.11 mg/dL 11/11/2024 12:56 PM T [facility] eGFR 80(L) >90 mL/min/1.7 3m2 11/11/2024 12:56 PM CDT [facility] Comment:Estimated Glomerular Filtration Rate (eGFR) calculated using the CKD-EPI Creatinine Equation (2020), per the National Kidney Foundation and [place] Society of Nephrology recommendations. Blood BLOOD SPECIMEN / Unknown Venipuncture / Unknown 11/11/2024 12:38 PM CDT 11/11/2024 12:41 PM CDT us Stanley Wellington MD LAB - CHEMISTRY ORDERABLES Fi nal Result Performing Organization Address City/State/[facility] Co de Phone Number [facility] [address] [place] [address] * VITAMIN B1 (11/05/2024 3:16 PM CDT) Vitamin B1 Whole Blood 173 70 - 180 nmol/L 11/09/2024 1:36 PM CDT [facility] ([facility]) Comment: INTERPRETIVE INFORMATION: Vitamin B1, Whole Blood This assay measures the concentration of thiamine diphosphate (TDP), the primary active form of vitamin B1. Approximately 90 percent of vitamin B1 present in whole blood is TDP. Thiamine and thiamine monophosphate, which comprise the remaining 10 percent, are not measured. This test was developed and its performance characteristics determined by [facility]. It has not been cleared or approved by the [place] Food and Drug Administration. This test was performed in a CLIA certified laboratory and is intended for clinical purposes. Performed By: [facility] [address] [place] [address] Superintendent Recreation: Pablo Calderon MD, PhD CLIA Number: [id number] Blood BLOOD SPECIMEN / Unknown Lab Venipuncture / Unknown 11/05/2024 3:16 PM CDT 11/05/2024 3:24 PM CDT Hazel Butler DO LAB - CHEMISTRY ORDERABLES Fi nal Result Performing Organization Address [facility]/ZIP Co de Phone Number [facility] ([facility]) [address] [place], [place] [address] * (ABNORMAL) PTH INTACT (11/05/2024 3:16 PM CDT) PTH Intact 113.2(H) 15.0 - 103.0 pg/mL 11/06/2024 9:38 AM CDT [facility] Blood BLOOD SPECIMEN / Unknown Lab Venipuncture / Unknown 11/05/2024 3:16 PM CDT 11/05/2024 3:24 PM CDT Kel Gonzalez MD LAB - CHEMISTRY ORDERABLES Final Result Performing Organization Address City/[facility]/ZIP Co de Phone Number [address] * HEMOGLOBIN A1C (11/05/2024 3:16 PM CDT) Hemoglobin A1c 4.7 4.2 - 5.6 % 11/05/2024 3:54 PM CDT [facility] Estimated Average Glucose 88 mg/dL 11/05/2024 3:54 PM CDT [facility] Blood BLOOD SPECIMEN / Unknown Lab Venipuncture / Unknown 11/05/2024 3:16 PM CDT 11/05/2024 3:24 PM CDT Narrative [facility] - 11/05/2024 3:54 PM CDT HbA1c Interpretation: Normal: < 5.7% Pre-diabetes: 5.7-6.4% Diabetes: Equal to or greater than 6.5% Test results diagnostic of diabetes should be repeated for confirmation. Treatment target values recommended by ADA and other clinical organizations should be used to evaluate metabolic control in patients. This test should not replace glucose testing for patients with Type 1 diabetes, pediatric patients, or women. Falsely low HbA1c results may be observed in patients with clinical conditions that shorten erythrocyte life span or decrease mean erythrocyte age such as the presence of unstable hemoglobin variants, elevated hemoglobin F level or other causes of hemolytic anemia. HbA1c may not accurately reflect glycemic control when clinical conditions that affect erythrocyte survival are present. Severe Iron deficiency anemia may yield falsely high results. Hemoglobin A1c assay should not be used to diagnose or monitor diabetes in patients with malignancy, recent blood transfusion, chronic kidney or liver disease. This method may yield falsely low results when hemoglobin (HbF) exceeds 5% in the specimen. The [place] Alinity assay for the measurement of HbA1c is a National Glycohemoglobin Standardization Program (NGSP) certified method. us Hazel Butler DO LAB - CHEMISTRY ORDERABLES Fi nal Result Performing Organization Address City/State/[facility] Co de Phone Number [facility] [address] * VITAMIN D 25-HYDROXY (11/05/2024 3:16 PM CDT) [facility] Vitamin D, 25 Hydroxy 67.7 30 - 80 ng/mL 11/05/2024 4:10 PM CDT [facility] Blood BLOOD SPECIMEN / Unknown Lab Venipuncture / Unknown 11/05/2024 3:16 PM CDT 11/05/2024 3:24 PM CDT Narrative [facility] - 11/05/2024 4:10 PM CDT Reference Values: The recommendation for 25-Hydroxy Vitamin D clinical decision points are as follows: Deficient < 20.0 ng/mL Insufficient 20.0-29.9 ng/mL Sufficient 30.0-100.0 ng/mL Potential Toxicity >100 ng/mL Reference: The Endocrine Society Clinical Practice Guidelines. 2011 If the 25-Hydroxy Vitamin D results are inconsistent with clinical evidence, it is recommended that follow-up testing using a method such as LC-MS/MS be performed to confirm the result. us Kel Gonzalez MD LAB - CHEMISTRY ORDERABLES Final Result Performing Organization Address City/[facility]/ZIP Co de Phone Number [facility] [address] [place] [address] * PHOSPHORUS BLOOD (11/05/2024 3:16 PM CDT) Phosphorus 3.1 2.5 - 4.5 mg/dL 11/05/2024 3:54 PM CDT [facility] Blood BLOOD SPECIMEN / Unknown Lab Venipuncture / Unknown 11/05/2024 3:16 PM CDT 11/05/2024 3:24 PM CDT us Kel Gonzalez MD LAB - CHEMISTRY ORDERABLES Final Result Performing Organization Address [facility] Co de Phone Number [facility] [address] [place] [address] * MAGNESIUM BLOOD (11/05/2024 3:16 PM CDT) Magnesium 1.9 1.6 - 2.6 mg/dL 11/05/2024 3:54 PM CDT [facility] Blood BLOOD SPECIMEN / Unknown Lab Venipuncture / Unknown 11/05/2024 3:16 PM CDT 11/05/2024 3:24 PM CDT us Kel Gonzalez MD LAB - CHEMISTRY ORDERABLES Final Result Performing Organization Address City/[facility]/ZIP Co de Phone Number [facility] [address] [place] [address] * VITAMIN B12 FOLATE PANEL (11/05/2024 3:16 PM CDT) Vitamin B12 699 213 - 816 pg/mL 11/05/2024 4:28 PM CDT [facility] Folate 12.7 7.0 - 31.4 ng/mL 11/05/2024 4:28 PM CDT [facility] Blood BLOOD SPECIMEN / Unknown Lab Venipuncture / Unknown 11/05/2024 3:16 PM CDT 11/05/2024 3:24 PM CDT Hazel Mackey Luke LAB - CHEMISTRY ORDERABLES Fi nal Result Performing Organization Address City/[facility]/ZIP Co de Phone Number [facility] [address] [place] [address] * IRON + TRANSFERRIN PANEL (11/05/2024 3:16 PM CDT) Iron 116 50 - 170 ug/dL 11/05/2024 3:53 PM CDT [facility] Transferrin 283 180 - 382 mg/dL 11/05/2024 3:53 PM CDT [facility] TIBC Calculated 354 261 - 497 ug/dL 11/05/2024 3:53 PM CDT [facility] Iron Saturation % 33 11 - 45 % 11/05/2024 3:53 PM CDT [facility] Blood BLOOD SPECIMEN / Unknown Lab Venipuncture / Unknown 11/05/2024 3:16 PM CDT 11/05/2024 3:24 PM CDT Hazelher Key Butler LAB - CHEMISTRY ORDERABLES Fi nal Result Performing Organization Address [facility]/ZIP Co de Phone Number [facility] [address] [place] [address] * FERRITIN (11/05/2024 3:16 PM CDT) Pathologist [facility] Ferritin 91 5 - 204 ng/mL 11/05/2024 4:28 PM CDT [facility] Blood BLOOD SPECIMEN / Unknown Lab Venipuncture / Unknown 11/05/2024 3:16 PM CDT 11/05/2024 3:24 PM CDT Hazel L Luke LAB - CHEMISTRY ORDERABLES Fi nal Result Performing Organization Address City/[facility]/ZIP Co de Phone Number [facility] [address] [place] [address] * (ABNORMAL) COMPREHENSIVE METABOLIC PANEL (11/05/2024 2:14 PM CDT) Glucose 82 70 - 125 mg/dL 11/05/2024 4:50 PM CDT [facility] Sodium 140 136 - 145 mmol/L 11/05/2024 4:50 PM CDT [facility] Potassium 4.3 3.4 - 5.1 mmol/L 11/05/2024 4:50 PM [facility] Chloride 108(H) 98 - 107 mmol/L 11/05/2024 4:50 PM [facility] CO2 26 22 - 29 mmol/L 11/05/2024 4:50 PM [facility] Calcium 10.24(H) 8.4 - 10.2 mg/dL 11/05/2024 4:50 PM [facility] Anion Gap 6 6 - 16 mmol/L 11/05/2024 4:50 PM [facility] BUN 15.4 9.8 - 20.1 mg/dL 11/05/2024 4:50 PM [facility] Creatinine 0.77 0.57 - 1.11 mg/dL 11/05/2024 4:50 PM [facility] Alkaline Phosphatase 64 40 - 150 U/L 11/05/2024 4:50 PM [facility] ALT 15 7 - 30 U/L 11/05/2024 4:50 PM [facility] AST 22 5 - 34 U/L 11/05/2024 4:50 PM [facility] Protein Total 7.0 6.4 - 8.3 gm/dL 11/05/2024 4:50 PM [facility] Albumin 4.0 3.1 - 4.5 gm/dL 11/05/2024 4:50 PM [facility] Globulin Total 3.0 2.6 - 4.0 gm/dL 11/05/2024 4:50 PM [facility] Albumin/Globulin Ratio 1.3 0.9 - 1.6 11/05/2024 4:50 PM [facility] Bilirubin Total 0.4 0.2 - 1.2 mg/dL 11/05/2024 4:50 PM [facility] eGFR 84(L) >90 mL/min/1. 73m2 11/05/2024 4:50 PM [facility] Comment:Estimated Glomerular Filtration Rate (eGFR) calculated using the CKD-EPI Creatinine Equation (2020), per the National Kidney Foundation and [employer] [employer] recommendations. Blood BLOOD SPECIMEN / Unknown Venipuncture / Unknown 11/05/2024 2:14 PM CDT 11/05/2024 2:14 PM CDT [facility] LAB - CHEMISTRY ORDERAB LES Final Result Performing Organization Address City/[facility]/ZIP Co de Phone Number [facility] [address] * TSH (11/05/2024 2:14 PM CDT) Pathologist [facility] TSH 1.3911 0.35 - 4.94 uIU/mL 11/05/2024 5:13 PM CDT [facility] Blood BLOOD SPECIMEN / Unknown Venipuncture / Unknown 11/05/2024 2:14 PM CDT 11/05/2024 2:14 PM CDT [facility] LAB - CHEMISTRY ORDERAB LES Final Result Performing Organization Address [facility] Co de Phone Number [facility] [address] [place] [address] * LIPID PROFILE (11/05/2024 2:14 PM CDT) Cholesterol 163 <200 mg/dL 11/05/2024 4:50 PM CDT [facility] Triglycerides 73 <150 mg/dL 11/05/2024 4:50 PM CDT [facility] HDL Cholesterol 59 >40 mg/dL 4:50 PM CDT [facility] Chol HDL Ratio 2.8 1.0 - 6.0 11/05/2024 4:50 PM CDT [facility] LDL Calculated 89 65 - 130 mg/dL 11/05/2024 4:50 PM CDT [facility] Comment:LDL is calculated us ing the Friedewald equation. VLDL Calculated 15 <=30 mg/dL 4:50 PM CDT [facility] Blood BLOOD SPECIMEN / Unknown Venipuncture / Unknown 11/05/2024 2:14 PM CDT 11/05/2024 2:14 PM CDT Narrative [facility] - 11/05/2024 4:50 PM CDT Lipid Profile Comment: CHOLESTEROL LEVEL..................CLINICAL INTERPRETATION LESS THAN 200 MG/DL..............................DESIRABLE 200-239 MG/DL..............................BORDERLINE HIGH GREATER THAN 240 MG/DL................................HIGH LDL-CHOLESTEROL LEVEL..............CLINICAL INTERPRETATION LESS THAN 100 MG/DL................................OPTIMAL 100-129 MG/DL.................................NEAR OPTIMAL GREATER THAN 160 MG/DL...........................HIGH RISK HDL RISK LEVEL GREATER THEN 60 MG/DL............................DECREASED 40-60 MG/DL........................................AVERAGE LESS THAN 40 MG/DL...............................INCREASED TRIGLYCERIDE LEVEL..................CLINICAL INTERPRETATION LESS THAN 150 MG/DL...............................DESIRABLE 150-199 MG/DL...............................BORDERLINE HIGH 200-499 MG/DL..........................................HIGH GREATER THAN 500..................................VERY HIGH THE NATIONAL CHOLESTEROL EDUCATION PROGRAM HAS SET THE ABOVE GUIDELINES (REFERANCE VALUES) FOR CHOLESTEROL AND HDL. RISK ASSOCIATED WITH CHOLESTEROL/HDL RATIOS RISK....................MALE RATIO.............FEMALE RATIO 1/2 AVERAGE.................<3.4.......................<3.3 LOW RISK.................... 4.0 ...................... 3.8 AVERAGE..................... 5.0 ...................... 4.5 2X AVERAGE.................. 9.5 ...................... 7.0 3X AVERAGE...................>23........................>11 Zainab Mcdaniel BLANKET BINDER-IDENTIFICATION AND RECORDS COMMANDER LAB - CHEMISTRY ORDERAB LES Final Result Performing Organization Address City/State/[facility] Co de Phone Number [facility] [address] * CT Coronary Calcium Scoring (09/19/2024 2:48 PM CDT) Anatomical Region Laterality Modality Chest Computed Tomogra phy 09/19/2024 3:50 PM CDT Impressions 09/19/2024 3:51 PM CDT IMPRESSION: Total coronary calcium score is 108.4. In comparison to a group of patients asymptomatic for coronary artery disease with the same age and gender, 76 percent of similar patients will have a lower calcium score than this patient. Score: 0:No identifiable calcified plaques. Low likelihood of coronary obstruction. 1-10:Minimal identifiable plaque. Significant obstructive coronary artery disease is less likely. 11-100: Definite but mild plaque. Risk factor modification is recommended. 101-400: Definite moderate plaque. Over 400: Significant plaque burden. Indicates likelihood of significant coronary stenosis. > Interpreting Provider: Joni Reyes MD on 09/19/2024 3:51 PM Narrative 09/19/2024 3:51 PM CDT PROCEDURE: CT CORONARY CALCIUM SCORING COMPARISON: No relevant available comparison. CLINICAL INFORMATION (none relevant/not provided if blank): Indication: Z86.39: History of diabetes mellitus, type II Additional History: Screening exam for cardiovascular risk factors. TECHNIQUE: [id number]: All CT scans at [facility]: CT dose reduction technique was used, including Automated Exposure Control. Narrow [id number], CT acquisition without intravenous contrast of the heart with attention to the coronary arteries; Cardiac scoring is performed with computer assisted analysis of plaque burden. FINDINGS: Visualized lungs are clear without pneumothorax, pleural effusion or consolidation. In the visualized mediastinum, no hilar or axillary lymphadenopathy. The imaged portion of the upper abdomen is unremarkable for a nonenhanced study. Osseous structures demonstrate no significant/relevant findings. CORONARY ARTERY CALCIFICATION: Left Main: 0 sq mm; Score: 0 LAD: 19.5 sq mm; Score: 21.9 LCX: 53.39 sq mm; Score: 86.49 PDA: 0 sq mm; Score: 0 RCA: 0 sq mm; Score: 0 OM: 0 sq mm; Score: 0 Dia sq mm; Score: 0 TOTAL CORONARY SCORE: 72.94 sq mm; score: 108.4 Procedure Note Joni Reyes MD - 09/19/2024 PROCEDURE: CT CORONARY CALCIUM SCORING COMPARISON: No relevant available comparison. CLINICAL INFORMATION (none relevant/not provided if blank): Indication: Z86.39: History of diabetes mellitus, type II Additional History: Screening exam for cardiovascular risk factors. TECHNIQUE: [id number]: All CT scans at [facility]: CT dose reduction technique wasused, including Automated Exposure Control. Narrow [id number], CT acquisition without intravenous contrast of the heart with attention to the coronary arteries; Cardiac scoring isperformed with computer assisted analysis of plaque burden. FINDINGS: Visualized lungs are clear without pneumothorax, pleural effusion or consolidation. In the visualized mediastinum, no hilar or axillary lymphadenopathy. The imaged portion of the upper abdomen is unremarkable for anonenhanced study. Osseous structures demonstrate no significant/relevant findings. CORONARY ARTERY CALCIFICATION: Left Main: 0 sq mm; Score: 0 LAD: 19.5 sq mm; Score: 21.9 LCX: 53.39 sq mm; Score: 86.49 PDA: 0 sq mm; Score: 0 RCA: 0 sq mm; Score: 0 OM: 0 sq mm; Score: 0 Dia sq mm; Score: 0 TOTAL CORONARY SCORE: 72.94 sq mm; score: 108.4 IMPRESSION: Total coronary calcium score is 108.4. In comparison to a group ofpatients asymptomatic for coronary artery disease with the same age and gender,76 percent of similar patients will have a lower calcium score than this patient. Score: 0:No identifiable calcified plaques. Low likelihood of coronary obstruction. 1-10:Minimal identifiable plaque. Significant obstructive coronaryartery disease is less likely. 11-100: Definite but mild plaque. Risk factor modification isrecommended. 101-400: Definite moderate plaque. Over 400: Significant plaque burden. Indicates likelihood ofsignificant coronary stenosis. > Interpreting Provider: Joni Reyes MD on 09/19/2024 3:51 PM us Stanley Wellington MD CT ORDERABLES Final Result * Mammo Bilat Screening W Wong (03/20/2024 1:32 PM HEALTH CARE RECRUITER) Anatomical Region Laterality Modality Breast Bilateral Mammography 03/20/2024 3:39 PM HEALTH CARE RECRUITER Narrative 03/20/2024 3:41 PM HEALTH CARE RECRUITER DIGITAL MAMMOGRAM SCREENING BILATERAL WITH CAD CORRELATION 3-D DIGITAL TOMOSYNTHESIS DATE: 03/20/2024 1:32 PM PREVIOUS EXAM DATE: 02/06/2023 and previous HISTORY: Screening TECHNIQUE: Bilateral breast CC and MLO views. These images were interpreted with the aid of CAD. 3-D Digital Tomosynthesis was performed. TISSUE DENSITY: Scattered fibroglandular densities FINDINGS: Parenchymal pattern is unchanged. Redemonstration of asymmetric density subareolar left breast. No suspicious mass or clustered microcalcification identified. No significant new finding. ASSESSMENT: Benign finding, BI-RADS 2 RECOMMENDATIONS: Continued annual screening mammography The above findings should be correlated with physical examination. A relatively nonspecific study should not preclude additional evaluation if suspicious findings are present clinically. An [employer] certified facility. [facility] utilize [employer] as a reminder system to notify patients of their next recommended mammograms. > Interpreting Provider: Joni Reyes MD on 03/20/2024 3:41 PM us Austin Magaña MD MAMMO ORDERABLES Final Resu lt * DEXA BONE DENSITY STUDY [id number] (11/01/2023 4:52 PM CDT) Anatomical Region Laterality Modality Digital Radiogra phy 11/01/2023 4:55 PM CDT Narrative 11/01/2023 4:56 PM CDT BONE MINERAL DENSITY STUDY INDICATION: Ovarian failure FINDINGS: The average bone mineral density from L2 to L4 is 1.153 g/cm2. T-score is -0.5 which is the standard deviations (SD) of the mean for the young adult. The Z-score is 0.7 which is the standard deviations for the mean for age matched control. ASSESSMENT: The above findings represent no significant increased risk of fracture through the spine. WORLD HEALTH ORGANIZATION DEFINITIONS OSTEOPENIA = -1 TO -2.5 SD BELOW T-SCORE OSTEOPOROSIS = LESS THAN -2.5 SD BELOW T-SCORE 1. No significant- < 1 SD below T score 2. Mild - 1 -2.0 SD below T-score 3. Moderate - 2 -2.5 SD below T-score 4. Significant - > 2.5 SD below T-score > Interpreting Provider: Charles Swanson MD on 11/01/2023 4:56 PM Procedure Note Charles Swanson MD - 11/01/2023 BONE MINERAL DENSITY STUDY INDICATION: Ovarian failure FINDINGS: The average bone mineral density from L2 to L4 is 1.153 g/cm2. T-scoreis -0.5 which is the standard deviations (SD) of the mean for the youngadult. The Z-score is 0.7 which is the standard deviations for the mean forage matched control. ASSESSMENT: The above findings represent no significant increased riskof fracture through the spine. WORLD HEALTH ORGANIZATION DEFINITIONS OSTEOPENIA = -1 TO -2.5 SD BELOW T-SCORE OSTEOPOROSIS = LESS THAN -2.5 SD BELOW T-SCORE 1. No significant- < 1 SD below T score 2. Mild - 1 -2.0 SD below T-score 3. Moderate - 2 -2.5 SD below T-score 4. Significant - > 2.5 SD below T-score > Interpreting Provider: Charles Swanson MD on 11/01/2023 4:56 PM Carrillo Slaughter MD DEXA ORDERABLES Final Result from Last 3 Months or Most Recently Relevant to Health Maintenance [facility] MEDICA [facility] HEALTH TPL THIRD DEMOCRAT LIABILITY Advance Directives * Full Code (Latest Code Status on File) Date Activated Date Inactivated Comments 11/11/2024 2:32 PM 11/11/2024 7:46 PM * Full Code Date Activated Date Inactivated Comments 02/12/2020 10:14 AM 02/14/2020 3:05 PM * Full Code Date Activated Date Inactivated Comments 09/09/2018 4:41 PM 09/12/2018 2:25 PM * Full Code Date Activated Date Inactivated Comments 09/24/2013 6:00 PM 09/26/2013 3:50 PM Care Teams Behavioral Scientist Relationship Specialty Start Date End Date Austin Magaña MD [address] [place] [address] PCP - General Internal Medicine 07/11/13 Hazel Butler DO [address] [place], [place] [address] PCP - Attributed-[employer] [facility] 04/09/21 Kel Gonzalez MD [address] [address] Physician Endocrinology 11/07/24
--- OUTSIDE RECORDS SUMMARY | 2024-12-11 15:31 | XMS_ITS | Encounter Summary ---
Author Organization [facility] Address [address] [place] [address] Care Team Providers Care Logging Supervisor Name Role Phone Austin Magaña MD Primary Care Provider [phone] Hazel Butler DO Unavailable [phone] Kel Gonzalez MD Unavailable Encounter Details Date Type Department Care Team (Late st Contact Info) Description 11/07/2024 Results Follow-Up [facility] - Endocrinology 2 Kwaku SalazarSabianism [facility], [facility] [address] [place] [address] Kel Gonzalez MD [address] [place] [address] Social History Tobacco Use Types Packs/Day Years Used Date Smoking Tobacco: Former Cigarettes Q uit: 04/09/1986 Smokeless Tobacco: Never Alcohol Use Standard Drinks/Week Comments Yes 0 (1 standard drink = 0.6 oz pur e alcohol) rare PHQ-2 Answer Date Recorded Patient Health Questionnaire-2 Score 0 10/06/2024 Comments No Sex and Gender Information Value Date Recorded Sex Assigned at Female 02/28/2020 8:07 AM SECOND CHEF Legal Sex Female 5:16 AM SECOND CHEF Gender Identity Female 02/28/2020 8:08 AM SECOND CHEF Sexual Orientation Straight 02/28/2020 8: 07 AM SECOND CHEF documented as of this encounter Functional Status [...] Entry Date Author No 09/12/2018 11:23 AM CDT Pravin Arvizu RN documented in this encounter Progress Notes * Kel Gonzalez MD - 11/07/2024 1:29 AM CDT Labs reviewed. Parathyroid hormone is elevated, but calcium is close to upper limit of normal range (only borderline high). Normal phosphorus, magnesium and vitamin D. Please order labs to be drawn 2 weeks before next visit: iPTH, CMP, phos. Thanks, FH documented in this encounter Plan of Treatment Upcoming Encounters Date Type Department Care Team (Late st Contact Info) Description 01/05/2025 11:30 AM CDT Office Visit [facility] [address] [place] [address] Hazel Butler DO [address] [place] [address] 01/26/2025 3:20 PM CDT Office Visit [facility] - Endocrinology 2 [facility], [address] [phone] Kel Gonzalez MD [address] [place] [address] documented as of this encounter Visit Diagnoses Not on filedocumented in this encounter Care Teams Logging Supervisor Relationship Specialty Start Date End Date Austin Magaña MD [address] [facility] [address] [place] [phone] PCP - General Internal Medicine 07/11/13 Hazel Butler DO [address] [place], [place] [address] PCP - Attributed-[employer] [facility] 04/09/21 Kel Gonzalez MD [address] [facility] [address] [place] [address] Physician Endocrinology 11/07/24 documented as of this encounter
[2024-12-11 16:01] LABS: Anion Gap 5 mmol/L (4-12); Blood Urea Nitrogen 27 mg/dL (7-17); Calcium 10.5 mg/dL (8.4-10.2); Carbon Dioxide 30 mmol/L (22-30); Chloride 103 mmol/L (98-107); Estimated Glomerular Filt Rate 58; Glucose 83 mg/dL (65-110); Potassium 4.7 mmol/L (3.4-5.0); Sodium 138 mmol/L (137-145)
== END 2024-12-11 15:24 | disposition home or self-care (01) ==
PROVIDERS: Visit Provider Anesthesiology
DX: I10 Essential (primary) hypertension (principal)
CPT/HCPCS: 36415; 80048

== ENCOUNTER 2024-12-19 02:32 | Day surgery (SDC) | payer OTHER, SELFPAY ==
--- OUTSIDE RECORDS SUMMARY | 2024-11-04 07:45 | XMS_ITS ---
Author Organization [facility] [place], Address [address] [place] [address] Care Team Providers Care Splitting Machine Operator Helper Name Role Phone Austin Magaña MD Primary Care Provider Stanley Rizvi Unavailable [phone] REASON FOR VISIT Treadmill nuclear Encounters Encounter Location Date Provider Diagnosis [facility] [place] [address] [place] [address] 11/04/2024 Stanley Wellington Plan Of Treatment Next Appt Details Provider Name:Stanley ornelas, 07/27/2025 03:00:00 PM, [address] , [place], [address], Progress Notes * Nichelle LUIS SDOB: [birth year] (69 yo F)Acc No.[id number]:11/04/2024 Patient: Nichelle SALMERON Provider: Latisha WELLINGTON MD :1955 A ge:69 Y S ex:Female Date:11/04/2024 Address:[address] [place], [place] Pcp:Austin Magaña MD * Images: * Electronic signature of Stanley Wellington MD on 12/19/2024 at 02:35 AM CDT Sign off status: Pending * Provider: Latisha WELLINGTON MD Date: 11/04/2024 Generated for Wesley ibrahim/Dorie/Kamillaitting on: 0 12/19/2024 02:35 AM CDT
[2024-12-11 13:27] VITALS: BMI 28.0
--- NOTE | 2024-12-11 14:05 | PC.NURSE ---
Report to the Outpatient Waiting Room, entrance under the green pavilion located off [facility], at time __6:00AM___ on date __12/19/24___. Planned Procedure Time: __7:30AM____.? Time changes happen often and if your time is changed the preop area will call you the afternoon before. - You and your visitor will be asked to self-screen and do not enter if you have any COVID symptoms. Please call surgeon if you need to reschedule. - A mask is optional within the hospital at this time. Patients may have clear liquids (water, carbonated beverages, clear teas, apple juice) until 3 hours prior to surgery (4:30AM) with a maximum of 20 ounces. - No food from midnight until time of surgery and no smoking, or chewing tobacco (or any form of nicotine). No chewing gum, candy or mints. Take only the following medications with a SIP of water on the morning of surgery: ___METOPROLOL DO NOT STOP ANY OF YOUR OTHER PRESCRIPTION MEDICATIONS PRIOR TO SURGERY EXCEPT THE FOLLOWING Hold all vitamins and supplements for 3 days per anesthesiologist.- LAST DOSE 12/15/24 Medications to discontinue per physician __HOLDING MOUNJARO SINCE 11/10/[address] DE DIOS Date to take last dose Please no make-up, nail australian, hairspray, perfume, deodorant, or body powder the day of surgery.? No jewelry (including any body piercings) or valuables the day of surgery, leave them at home.? Please take a shower or bath the night before, or the morning of, surgery with an antibacterial soap.? Wear comfortable, loose fitting clothing.? - Jewelry must be removed prior to entering the operating room.? Rings and piercings that are not removed may be cut off. - The hospital will not accept responsibility for valuables.? - Please leave all valuables, including medications, at home the day of surgery. If you are going home after surgery, a licensed class a regional drivers must drive you home.? - NO public transportation without another adult if you receive anesthesia. - We recommend that an adult stay with you for 24 hours following discharge. - We also recommend that you do not drive, make important decision, drink alcoholic beverages, or take any drugs that were not prescribed by your health care provider for at least 24 hours after your discharge time. Follow any additional instructions given to you from your surgeon. Telephone instructions given to ____PATIENT and asked if any additional questions and then verbalized understanding. Patient advised to call surgeon office or pre surgery nurse liaison [phone] if any additional questions.
[2024-12-19] VITALS (8 sets, daily range): BP systolic 128–164; BP diastolic 59–72; PULSE 53–67; RESP 10–18; TEMP 36.3–36.7; O2SAT 95–100; BMI 28.2
--- OUTSIDE RECORDS SUMMARY | 2024-12-19 02:35 | XMS_ITS | Encounter Summary ---
Author Organization [facility] Address [address] [place] [address] Care Team Providers Care Naphthalene Operator Name Role Phone Austin Magaña MD Primary Care Provider [phone] Hazel Butler DO Unavailable [phone] Kel Gonzalez MD Unavailable Reason for Visit * Reason Onset Date Comments Results 11/11/2024 Encounter Details Date Type Department Care Team (Late st Contact Info) Description 11/11/2024 Results Follow-Up [facility] [address] [place] [address] Hazel Butler DO [address] [place], [place] [address] Results Social History Tobacco Use Types Packs/Day Years Used Date Smoking Tobacco: Former Cigarettes Q uit: 04/09/1986 Smokeless Tobacco: Never Alcohol Use Standard Drinks/Week Comments Yes 0 (1 standard drink = 0.6 oz pur e alcohol) rare PHQ-2 Answer Date Recorded Patient Health Questionnaire-2 Score 0 10/06/2024 Comments No Sex and Gender Information Value Date Recorded Sex Assigned at Female 02/28/2020 8:07 AM MANAGER INTRANET Legal Sex Female 5:16 AM MANAGER INTRANET Gender Identity Female 02/28/2020 8:08 AM MANAGER INTRANET Sexual Orientation Straight 02/28/2020 8: 07 AM MANAGER INTRANET documented as of this encounter Functional Status [...] Description 01/05/2025 11:30 AM CDT Office Visit [facility] [address] [place] [address] Hazel Butler DO [address] [place] [address] 01/26/2025 3:20 PM CDT Office Visit [facility] - Endocrinology 2 [address] [phone] Kel Gonzalez MD [address] [place] [phone] documented as of this encounter Visit Diagnoses Not on filedocumented in this encounter Care Teams Naphthalene Operator Relationship Specialty Start Date End Date Austin Magaña MD [address] [facility] [address] [place] [id number] PCP - General Internal Medicine 07/11/13 Hazel Butler DO [address] [place], [place] [address] PCP - Attributed-[employer] [facility] [employer] 04/09/21 Kel Gonzalez MD [address] [address] Physician Endocrinology 11/07/24 documented as of this encounter
--- OUTSIDE RECORDS SUMMARY | 2024-12-19 02:35 | XMS_ITS | Encounter Summary ---
Author Organization [facility] Address [facility] [place] [address] Care Team Providers Care Technology Applications Engineer Name Role Phone Austin Magaña MD Primary Care Provider Kiran Canales MD Unavailable Unavailabl Suellen Bear MD Unavailable Peter Nuñez MD Unavailable Unavailable Encounter Details Date Type Department Care Team (Late st Contact Info) Description 03/02/2015 [facility] [address] [place] [address] Kiran Canales MD Social History [...] on filedocumented in this encounter Care Teams Technology Applications Engineer Relationship Specialty Start Date End Date Austin Magaña MD [address] [place], [place] [phone] PCP - General INTERNAL MEDICINE 10/20/15 Kiran Canales MD [address] Contract Preparer CARDIOVASCULAR DISEASE 10/20/15 Suellen Kennedy MD [address] [place] [address] EP Contract Preparer CLINICAL CARDIAC ELECTROPHYSIOLOGY 10/20/15 Peter Nuñez MD [address] [place] [address] Consulting Physician ENDOCRINOLOGY 10/25/18 documented as of this encounter
--- OUTSIDE RECORDS SUMMARY | 2024-12-19 02:35 | XMS_ITS | Encounter Summary ---
Author Organization [facility] Address [address] [place] [address] Care Team Providers Care Data Integrity Specialist Name Role Phone Austin Magaña MD Primary Care Provider [phone] Hazel Butler DO Unavailable [phone] Kel Gonzalez MD Unavailable Encounter Details Date Type Department Care Team (Late st Contact Info) Description 11/07/2024 Results Follow-Up [facility] - Endocrinology [address] [facility], [facility] [address] [place] [address] Kel Gonzalez MD [address] [place] [address] Social History Tobacco Use Types [...] Sex Assigned at Female 02/28/2020 8:07 AM [employer] Legal Sex Female 5:16 AM [employer] Gender Identity Female 02/28/2020 8:08 AM [employer] Sexual Orientation Straight 02/28/2020 8: 07 AM [employer] documented as of this encounter Functional Status [...] Description 01/05/2025 11:30 AM CDT Office Visit [facility] [address] [place] [address] Hazel Butler DO [address] [place] [address] 01/26/2025 3:20 PM CDT Office Visit [facility] - Endocrinology 2 [facility], [address] [phone] Kel Gonzalez MD [address] [place] [address] documented as of this encounter Visit Diagnoses Not on filedocumented in this encounter Care Teams Data Integrity Specialist Relationship Specialty Start Date End Date Austin Magaña MD [address] [facility] [address] [place] [id number] PCP - General Internal Medicine 07/11/13 Hazel Butler DO [address] [place], [place] [phone] PCP - Attributed-[facility] [facility] [employer] 04/09/21 Kel Gonzalez MD [address] [facility] [address] [place] [address] Physician Endocrinology 11/07/24 documented as of this encounter
--- OUTSIDE RECORDS SUMMARY | 2024-12-19 02:35 | XMS_ITS | Patient Health Record ---
Author Organization [facility], Address [address] [place] [address] Care Team Providers Care Counter Dish Carrier Name Role Phone Austin Magaña MD Primary Care Provider Stanley Rizvi Unavailable [phone] Ada Rodriguez Unavailable [phone] Allergies Allergen (clinical drug ingredient) Drug/Non Drug [...] tobacco Section Notes: She is the administraotor director style At [facility] None smoker She is the administraotor director style At [facility] None smoker She is the administraotor director style At [facility] None smoker Problems Problem Type SNOMED Code ICD Code Onset Dates Problem Status W/U Status Risk Notes Problem Disorder due to type 2 diabetes mellitus (161259217) Type 2 diabetes mellitus with unspecified complications (E11.8) Active confirmed Problem Essential hypertension (62445178) Essential (primary) hypertension (I10) Active confirmed Problem Paroxysmal atrial fibrillation (619573195) Paroxysmal atrial fibrillation (I48.0) Active confirmed Problem Chest pain (77432000) Chest pain, unspecified (R07.9) Active confirmed Problem Angina pectoris (925207221) Other forms of angina pectoris (I20.89) Active confirmed Vital Signs Heart Rate 66 /min 11/07/2024 Blood pressure diastolic 62 mm Hg 11/07/2024 Height 5ft 4in in 11/07/2024 Blood pressure systolic 132 mm Hg 11/07/2024 Weight 150 lbs 11/07/2024 BMI 25.74 kg/m2 11/07/2024 Encounters Encounter Location Date Provider Diagnosis [facility] [place], [address] [place] [address] 11/04/2024 [facility] [place], [address] [place] [address] 07/14/2024 [facility] Paroxysmal atrial fibrillation I48.0 ; Type 2 diabetes mellitus with unspecified complications E11.8 and Essential (primary) hypertension I10 [facility] [place], [address] [place] [address] 11/07/2024 Ada Rodriguez Paroxysmal atrial fibrillation I48.0 ; Type 2 diabetes mellitus with unspecified complications E11.8 and Essential (primary) hypertension I10 [facility] [place] [address] [place] [address] 08/18/2024 [facility] [place] [address] [place] [address] 09/30/2024 [facility] [place] [address] [place] [address] 10/02/2024 [facility] [place] [address] [place] [address] 11/05/2024 [facility] [place] [address] [facility] [place] [address] 11/07/2024 [facility] [place] [address] [place] [address] 11/14/2024 [facility] Assessments Encounter Date Diagnosis (ICD Code) Assessment Notes Treatment Notes Treatment Clinical Notes Section Notes 07/14/2024 Paroxysmal atrial fibrillation (ICD-10 - I48.0) Paroxysmal atrial fibrillation She is s/p ablation in 2013 and repeat ablation 04/2016 in [facility] 04/23/2023 showed EF 60% Left [...] in 2013 and repeat ablation 04/2016 in [facility] 04/23/2023 showed EF 60% Left [...] now We will coronary calcium score at [facility] 11/07/2024 Essential (primary) hypertension (ICD-10 - I10) [...] Name:Stanley ornelas, 07/27/2025 03:00:00 PM, [address] [place], [address], Insurance Providers Payer Name Payer Address Payer Phone Subscriber Number Group Number Insured Name Patient Relationship to Insured Coverage Start Date Coverage End Date [employer] [address] [address] [place] [address] [phone] [id number] Rosalva, Nichelle Self - patient is the insured Medical (General) History Medical History History ICD Code Other forms of angina pectoris I20.89 Surgical History Surgery Date(Month/Year) Cholecystectomy, gastric sleeve surgery, Right TKA and left TKA
--- OUTSIDE RECORDS SUMMARY | 2024-12-19 02:35 | XMS_ITS | Encounter Summary ---
Author Organization [facility] Address [facility] [place] [address] Care Team Providers Care Geometry Tutor Name Role Phone Austin Magaña MD Primary Care Provider Kiran Canales MD Unavailable Unavailabl Suellen Bear MD Unavailable Peter Nuñez MD Unavailable Unavailable Encounter Details Date Type Department Care Team (Late st Contact Info) Description 11/02/2015 Abstract [facility] [place] [address] [place] [address] Kiran Canales MD Social History [...] on filedocumented in this encounter Care Teams Geometry Tutor Relationship Specialty Start Date End Date Austin Magaña MD [address] [place], [place] [address] PCP - General INTERNAL MEDICINE 10/20/15 Kiran Canales MD [address] Riveting Machine Operator CARDIOVASCULAR DISEASE 10/20/15 Suellen Kennedy MD [address] [place] [address] EP Riveting Machine Operator CLINICAL CARDIAC ELECTROPHYSIOLOGY 10/20/15 Peter Nuñez MD [address] [place] [address] Consulting Physician ENDOCRINOLOGY 10/25/18 documented as of this encounter
--- OUTSIDE RECORDS SUMMARY | 2024-12-19 02:35 | XMS_ITS | Clinical Summary ---
Author Organization [facility] Address [address] [place] [address] Care Team Providers Care Hims Clerk Name Role Phone Austin Magaña MD Primary Care Provider [phone] Hazel Butler DO Unavailable [phone] Kel Gonzalez MD Unavailable Source Comments [facility],non-owned Affiliates and Associated Physician Practices is amultiple site organization consisting of ambulatory clinics and hospital sitesin [place], [place], [place] and [place]. This disclosure is being madepursuant to the Care Everywhere program and may not contain all information available regarding this patient. Last updated 17.[facility] Allergies Active Allergy Reactions Criticality Noted Date [...] CDT - 11/11/2024 2:45 PM CDT Surgery [facility] - Cardiac Asphalt Smoother [address] [place] [address] Stanley Wellington MD Left Heart Cath 11/11/2024 11:38 AM CDT - 11/11/2024 6:46 PM CDT Hospital Encounter [facility] [address] [place] [address] Stanley Wellington MD Cardiac Catheterization Discharge Disposition: Home or Self Care 11/11/2024 11:27 AM CDT - 11/11/2024 11:37 AM CDT Hospital Encounter [facility] [address] [place] [address] Stanley Wellington MD Discharge Disposition: Home or Self Care 11/11/2024 Travel 11/11/2024 Results Follow-Up [facility] [address] [place] [address] Hazel Butler DO Results 11/10/2024 2:30 PM CDT Office [facility] ENT [address] [place] [phone] Aniceto Gr, PhD Sensorineural hearing loss (SNHL) of both ears (Primary Dx) 11/10/2024 Travel 11/07/2024 Orders Only [facility] - Endocrinology [address] [facility], [facility] [address] [place] [phone] Kel Gonzalez MD Hypercalcemia 11/07/2024 Results Follow-Up [facility] - Endocrinology [address] [facility], [facility] [address] [place] [phone] Kel Gonzalez MD 11/05/2024 3:15 PM CDT - 11/05/2024 11:59 PM CDT Hospital Encounter [facility] [address] [place] [address] Kel Gonzalez MD Endocrinology Discharge Disposition: Home or Self Care 11/05/2024 1:52 PM CDT - 11/05/2024 3:14 PM CDT Hospital Encounter [facility] Lab [address] [place] [address] Zainab Mcdaniel APRN-REPRODUCTION PRODUCTION MANAGER Discharge Disposition: Home or Self Care 11/05/2024 Travel 10/06/2024 11:30 AM CDT Office Visit [facility] [address] [place] [phone] Haezl Butler, Overweight with body mass index (BMI) of 27 to 27.9 in adult (Primary Dx); Type 2 diabetes mellitus with obesity (HCC); S/P laparoscopic sleeve gastrectomy; Hyperparathyroidism (HCC); History of kidney stones; Primary hypertension; History of bariatric surgery 09/19/2024 2:00 PM CDT - 09/19/2024 11:59 PM CDT Hospital Encounter [facility] - CT Scan 1 [place] [address] Stanley Wellington MD Discharge Disposition: Home or Self Care from Last 3 Months Immunizations Immunization Administration [...] Sex Assigned at Female 02/28/2020 8:07 AM ELECTRIC POWER MACHINE OPERATOR Legal Sex Female 5:16 AM ELECTRIC POWER MACHINE OPERATOR Gender Identity Female 02/28/2020 8:08 AM ELECTRIC POWER MACHINE OPERATOR Sexual Orientation Straight 02/28/2020 8: 07 AM ELECTRIC POWER MACHINE OPERATOR Last Filed Vital Signs Vital Sign Reading [...] Description 01/05/2025 11:30 AM CDT Office Visit [facility] Services [address] [place] [phone] Hazel Butler DO [address] [place] [address] 01/26/2025 3:20 PM CDT Office Visit [facility] - Endocrinology [address] [place], [place] [address]bairon Andraed [address] [address] Kel Gonzalez MD [address] [place] [address] Health Maintenance Due Date Last [...] Additional history exists INFLUENZA VACCINE (#1) 2024 (Done Outside Per Patient), 01/17/2019 (Done Outside [...] this topic Medical Devices Implanted Type Area Skiff Operator Device Identifier Shelf Expiration Date Model / Serial / Lot Cmnt Bone Cblt 40gm Hvisc Strl Implanted:Qty: 1 on 09/09/2018 by Silverio Sam MD at [facility] Right: Knee [employer] 08/10/2019 600-15-000 / / [id number] Cmpnt Ptlr 28mm 1 Pg Wire Ascnt Arcm Kn Implanted:Qty: 1 on 09/09/2018 by Silverio Sam MD at [facility] Right: Knee [employer] 07/11/2023 [id number] / / [id number] Cmpnt Fem Kn Rt Cr Cmnt Prm Vngrd Intlk Implanted:Qty: 1 on 09/09/2018 by Silverio Sam MD at [facility] Right: Knee [employer] 06/09/2028 [id number] / / [id number] Tray Tib 71mm Kn Cocr I Beam Implanted:Qty: 1 on 09/09/2018 by Silverio Sam MD at [facility] Right: Knee [employer] 06/09/2028 [id number] / / [id number] Brng [id number] Vngrd Arcm Kn Ant Stab Implanted:Qty: 1 on 09/09/2018 by Silverio Sam MD at [facility] Right: Knee [employer] 06/10/2023 [id number] / / [id number] Brng [id number] Vngrd Arcm Kn Ant Stab Implanted:Qty: 1 on 02/12/2020 by Silverio Sam MD at [facility] Left: Knee [employer] 12/12/2024 [id number] / / [id number] Cmnt Bone Djo Srg Cblt 40gm Hvisc Strl Implanted:Qty: 1 on 02/12/2020 by Silverio Sam MD at [facility] Left: Knee [employer] 12/12/2020 600-15-000 / / [id number] Tray Tib 71mm Kn Cocr I Beam Implanted:Qty: 1 on 02/12/2020 by Silverio Sam MD at [facility] Left: Knee [employer] 10/11/2029 [id number] / / [id number] Cmpnt Fem Kn Lt Cr Cmnt Prm Vngrd Intlk Implanted:Qty: 1 on 02/12/2020 by Silverio Sam MD at [facility] Left: Knee [employer] 11/11/2029 [id number] / / [id number] Cmpnt Ptlr 28mm 1 Pg Wire Ascnt Arcm Kn Implanted:Qty: 1 on 02/12/2020 by Silverio Sam MD at [facility] Left: Knee [employer] 11/11/2024 [id number] / / [id number] Procedures Procedure Name Priority Date/Time Associated Diagnosis [...] CDT Routine general medical examination at a [facility] facility LIPID PROFILE Routine 11/05/2024 2:14 PM CDT Routine general medical examination at a health care facility TSH Routine 11/05/2024 2:14 PM CDT Routine general medical examination at a health care facility COMPREHENSIVE METABOLIC PANEL Routine 11/05/2024 2:14 PM CDT Routine general medical examination at a health care facility CT CORONARY CALCIUM SCORING Routine 09/19/2024 2:48 PM CDT History of diabetes mellitus, type II MAMMO BILAT SCREENING W WONG Routine 03/20/2024 1:32 PM ELECTRIC POWER MACHINE OPERATOR Visit for screening mammogram DEXA BONE DENSITY AXIAL SKELETON Routine 11/01/2023 4:52 PM CDT Hyperparathyroidism Hypercalcemia from Last 3 Months or Most Recently Relevant to Health Maintenance Results * CCL LEFT HEART CATH (11/11/2024 2:24 PM CDT) Pathologist [facility] Ejection Fraction 60 % SS CV FUJI [...] * EKG 12-LEAD (11/11/2024 12:55 PM CDT) Pathologist [facility] Ventricular Rate 59 BPM [facility] Atrial Rate 59 BPM [facility] P-R Interval 154 ms [facility] QRS Duration ms 82 ms [facility] Q-T Interval ms 406 ms [facility] QTC Calculation (Bezet) 401 ms [facility]USE Calculated P [place] 91 degrees [facility] Calculated R [place] 33 degrees [facility]USE Calculated T [place] 6 degrees [facility] Interpretation EKG Sinus bradycardia with Premature supraventricular complexes Otherwise normal ECG No previous ECGs available Confirmed by MD STEPHANIE, STANLEY Reynoso ([id number]) on 11/11/2024 3:30:45 PM [facility] MUSE 11/11/2024 12:5 5 PM CDT 11/11/2024 3:30 PM CDT us Stanley Wellington MD ECG ORDERABLES Edited Result - Final [facility] MUSE * (ABNORMAL) CBC W AUTO DIFFERENTIAL (11/11/2024 12:38 PM CDT) Only the most recent of2 resultswithin the time period is included. WBC 6.2 4.0 - 10.7 x10E9/L 11/11/2024 12:46 PM CDT [facility] RBC Count 3.86(L) 3.90 - 5.20 x10E12/L 11/11/2024 12:46 PM CDT AM [facility] Hemoglobin 12.3 11.9 - 15.8 g/dL 11/11/2024 12:46 PM CDT AM [facility] Hematocrit 37.8 34.8 - 46.1 % 11/11/2024 12:46 PM CDT AM [facility] MCV 97.9 80.0 - 98.0 fL 11/11/2024 12:46 PM CDT AM [facility] MCH 31.9 26.7 - 33.6 pg 11/11/2024 12:46 PM CDT AM [facility] MCHC 32.5 31.7 - 36.3 g/dL 11/11/2024 12:46 PM CDT [facility] RDW-CV 12.4 11.3 - 14.8 % 11/11/2024 12:46 PM CDT AM [facility] Platelet Count 263 150 - 420 x10E9/L 11/11/2024 12:46 PM CDT AM [facility] MPV 9.6 7.8 - 11.4 fL 11/11/2024 12:46 PM CDT [facility] Neutrophil % 59.0 41.0 - 74.0 [...] LAB - HEMATOLOGY ORDERABLES F inal Result [facility] 1 [place] [address], [facility] * (ABNORMAL) BASIC METABOLIC PANEL (CALCIUM TOTAL) (11/11/2024 12:38 PM CDT) Glucose 78 70 - 125 mg/dL 11/11/2024 12:56 PM CDT [facility] Sodium 142 136 - 145 mmol/L 11/11/2024 12:56 PM CDT [facility] Potassium 4.5 3.4 - 5.1 mmol/L 11/11/2024 12:56 PM CDT [facility] Chloride 109(H) 98 - 107 mmol/L 11/11/2024 12:56 PM CDT [facility] CO2 28 22 - 29 mmol/L 11/11/2024 12:56 PM CDT [facility] Calcium 10.72(H) 8.4 - 10.2 mg/dL 11/11/2024 12:56 PM CDT [facility] Anion Gap 5(L) 6 - 16 mmol/L 11/11/2024 12:56 PM CDT [facility] BUN 16.5 9.8 - 20.1 mg/dL 11/11/2024 12:56 PM CDT [facility] Creatinine 0.80 0.57 - 1.11 mg/dL 11/11/2024 12:56 PM CDT [facility] eGFR 80(L) >90 mL/min/1.7 3m2 11/11/2024 12:56 PM CDT [facility] Comment:Estimated Glomerular Filtration Rate (eGFR) calculated using the CKD-EPI Creatinine Equation (2020), per the National Kidney Foundation and British Society of Nephrology recommendations. Blood BLOOD SPECIMEN / Unknown Venipuncture / Unknown 11/11/2024 12:38 PM CDT 11/11/2024 12:41 PM CDT Stanley Wellington MD LAB - CHEMISTRY ORDERABLES Fi nal Result [facility] [address] * VITAMIN B1 (11/05/2024 3:16 PM CDT) [facility] Vitamin B1 Whole Blood 173 70 - 180 nmol/L 11/09/2024 1:36 PM CDT [facility] ([facility] Comment: INTERPRETIVE INFORMATION: Vitamin B1, Whole Blood This assay measures the concentration of thiamine diphosphate (TDP), the primary active form of vitamin B1. Approximately 90 percent of vitamin B1 present in whole blood is TDP. Thiamine and thiamine monophosphate, which comprise the remaining 10 percent, are not measured. This test was developed and its performance characteristics determined by [facility]. It has not been cleared or approved by the US Food and Drug Administration. This test was performed in a CLIA certified laboratory and is intended for clinical purposes. Performed By: [facility] [address] [place] [address] Helmet Hat Brim Cutter: Pablo Calderon MD, PhD CLIA Number: [id number] Blood BLOOD SPECIMEN / Unknown Lab Venipuncture / Unknown 11/05/2024 3:16 PM CDT 11/05/2024 3:24 PM CDT Hazel Butler DO LAB - CHEMISTRY ORDERABLES Fi nal Result Performing Organization Address [facility]/ZIP Co de Phone Number [facility] [employer] ([facility]) [address] [place], [place] [address] * (ABNORMAL) PTH INTACT (11/05/2024 3:16 PM CDT) PTH Intact 113.2(H) 15.0 - 103.0 pg/mL 11/06/2024 9:38 AM CDT [facility] Blood BLOOD SPECIMEN / Unknown Lab Venipuncture / Unknown 11/05/2024 3:16 PM CDT 11/05/2024 3:24 PM CDT Kel Gonzalez MD LAB - CHEMISTRY ORDERABLES Final Result Performing Organization Address City/[facility]/ZIP Co de Phone Number [address] * HEMOGLOBIN A1C (11/05/2024 3:16 PM CDT) Hemoglobin A1c 4.7 4.2 - 5.6 % 11/05/2024 3:54 PM CDT [facility] Estimated Average Glucose 88 mg/dL 11/05/2024 3:54 PM CDT [facility] Blood BLOOD SPECIMEN / Unknown Lab Venipuncture / Unknown 11/05/2024 3:16 PM CDT 11/05/2024 3:24 PM CDT Narrative [facility] - 11/05/2024 3:54 PM CDT HbA1c [...] (HbF) exceeds 5% in the specimen. The [employer] Alinity assay for the measurement of HbA1c is a National Glycohemoglobin Standardization Program (NGSP) certified method. Hazel Butler DO LAB - CHEMISTRY ORDERABLES Fi nal Result Performing Organization Address City/State/[facility] de Phone Number [facility] [address] * VITAMIN D 25-HYDROXY (11/05/2024 3:16 PM CDT) [facility] Vitamin D, 25 Hydroxy 67.7 30 - 80 ng/mL 11/05/2024 4:10 PM CDT [facility] Blood BLOOD SPECIMEN / Unknown Lab Venipuncture / Unknown 11/05/2024 3:16 PM CDT 11/05/2024 3:24 PM CDT Narrative [facility] - 11/05/2024 4:10 PM CDT Reference [...] CHEMISTRY ORDERABLES Final Result Performing Organization Address City/[facility]/ZIP Co de Phone Number [facility] [address] * PHOSPHORUS BLOOD (11/05/2024 3:16 PM CDT) Phosphorus 3.1 2.5 - 4.5 mg/dL 11/05/2024 3:54 PM CDT [facility] Blood BLOOD SPECIMEN / Unknown Lab Venipuncture / Unknown 11/05/2024 3:16 PM CDT 11/05/2024 3:24 PM CDT us Kel Gonzalez MD LAB - CHEMISTRY ORDERABLES Final Result Performing Organization Address [facility] Co de Phone Number [facility] [address] [place] [address] * MAGNESIUM BLOOD (11/05/2024 3:16 PM CDT) Magnesium 1.9 1.6 - 2.6 mg/dL 11/05/2024 3:54 PM CDT [facility] Blood BLOOD SPECIMEN / Unknown Lab Venipuncture / Unknown 11/05/2024 3:16 PM CDT 11/05/2024 3:24 PM CDT us Kel Gonzalez MD LAB - CHEMISTRY ORDERABLES Final Result Performing Organization Address City/[facility]/ZIP Co de Phone Number [facility] [address] [place] [address] * VITAMIN B12 FOLATE PANEL (11/05/2024 3:16 PM CDT) Vitamin B12 699 213 - 816 pg/mL 11/05/2024 4:28 PM CDT [facility] Folate 12.7 7.0 - 31.4 ng/mL 11/05/2024 4:28 PM CDT [facility] Blood BLOOD SPECIMEN / Unknown Lab Venipuncture / Unknown 11/05/2024 3:16 PM CDT 11/05/2024 3:24 PM CDT us [employer] LAB - CHEMISTRY ORDERABLES Fi nal Result Performing Organization Address City/[facility]/ZIP Co de Phone Number [facility] [address] [place] [address] * IRON + TRANSFERRIN PANEL (11/05/2024 3:16 PM CDT) Iron 116 50 - 170 ug/dL 11/05/2024 3:53 PM CDT [facility] Transferrin 283 180 - 382 mg/dL 11/05/2024 3:53 PM CDT [facility] TIBC Calculated 354 261 - 497 ug/dL 11/05/2024 3:53 PM CDT [facility] Iron Saturation % 33 11 - 45 % 11/05/2024 3:53 PM CDT [facility] Blood BLOOD SPECIMEN / Unknown Lab Venipuncture / Unknown 11/05/2024 3:16 PM CDT 11/05/2024 3:24 PM CDT Hazel [employer] LAB - CHEMISTRY ORDERABLES Fi nal Result Performing Organization Address [facility] Co de Phone Number [facility] [address] [place] [address] * FERRITIN (11/05/2024 3:16 PM CDT) [facility] Ferritin 91 5 - 204 ng/mL 11/05/2024 4:28 PM CDT [facility] Blood BLOOD SPECIMEN / Unknown Lab Venipuncture / Unknown 11/05/2024 3:16 PM CDT 11/05/2024 3:24 PM CDT [facility] LAB - CHEMISTRY ORDERABLES Fi nal Result Performing Organization Address City/[facility]/ZIP Co de Phone Number [facility] [address] [place] [address] * (ABNORMAL) COMPREHENSIVE METABOLIC PANEL (11/05/2024 2:14 PM CDT) Pathologist [facility] Glucose 82 70 - 125 mg/dL 11/05/2024 4:50 PM CDT [facility] Sodium 140 136 - 145 mmol/L 11/05/2024 4:50 PM CDT [facility] Potassium 4.3 3.4 - 5.1 mmol/L 11/05/2024 4:50 PM [facility] Chloride 108(H) 98 - 107 mmol/L 11/05/2024 4:50 PM [facility] CO2 26 22 - 29 mmol/L 11/05/2024 4:50 PM [facility] Calcium 10.24(H) 8.4 - 10.2 mg/dL 11/05/2024 4:50 PM [facility] Anion Gap 6 6 - 16 mmol/L 11/05/2024 4:50 PM [facility] BUN 15.4 9.8 - 20.1 mg/dL 11/05/2024 4:50 PM [facility] Creatinine 0.77 0.57 - 1.11 mg/dL 11/05/2024 4:50 PM [facility] Alkaline Phosphatase 64 40 - 150 U/L 11/05/2024 4:50 PM [facility] ALT 15 7 - 30 U/L 11/05/2024 4:50 PM [facility] AST 22 5 - 34 U/L 11/05/2024 4:50 PM [facility] Protein Total 7.0 6.4 - 8.3 gm/dL 11/05/2024 4:50 PM [facility] Albumin 4.0 3.1 - 4.5 gm/dL 11/05/2024 4:50 PM [facility] Globulin Total 3.0 2.6 - 4.0 gm/dL 11/05/2024 4:50 PM [facility] Albumin/Globulin Ratio 1.3 0.9 - 1.6 11/05/2024 4:50 PM [facility] Bilirubin Total 0.4 0.2 - 1.2 mg/dL 11/05/2024 4:50 PM [facility] eGFR 84(L) >90 mL/min/1. 73m2 11/05/2024 4:50 PM [facility] Comment:Estimated Glomerular Filtration Rate (eGFR) calculated using the CKD-EPI Creatinine Equation (2020), per the National Kidney Foundation and British Society of Nephrology recommendations. Blood BLOOD SPECIMEN / Unknown Venipuncture / Unknown 11/05/2024 2:14 PM CDT 11/05/2024 2:14 PM CDT [facility] LAB - CHEMISTRY ORDERAB LES Final Result Performing Organization Address City/[facility]/ZIP Co de Phone Number [facility] [address] * TSH (11/05/2024 2:14 PM CDT) Pathologist [facility] TSH 1.3911 0.35 - 4.94 uIU/mL 11/05/2024 5:13 PM CDT [facility] Blood BLOOD SPECIMEN / Unknown Venipuncture / Unknown 11/05/2024 2:14 PM CDT 11/05/2024 2:14 PM CDT [facility] LAB - CHEMISTRY ORDERAB LES Final Result Performing Organization Address [facility] Co de Phone Number [facility] [address] * LIPID PROFILE (11/05/2024 2:14 PM CDT) Pathologist [facility] Cholesterol 163 <200 mg/dL 11/05/2024 4:50 PM CDT [facility] Triglycerides 73 <150 mg/dL 11/05/2024 4:50 PM CDT [facility] HDL Cholesterol 59 >40 mg/dL 4:50 PM CDT [facility] Chol HDL Ratio 2.8 1.0 - 6.0 11/05/2024 4:50 PM CDT [facility] LDL Calculated 89 65 - 130 mg/dL 11/05/2024 4:50 PM CDT [facility] Comment:LDL is calculated us ing the Friedewald equation. VLDL Calculated 15 <=30 mg/dL 4:50 PM CDT [facility] Blood BLOOD SPECIMEN / Unknown Venipuncture / Unknown 11/05/2024 2:14 PM CDT 11/05/2024 2:14 PM CDT Narrative [facility] - 11/05/2024 4:50 PM CDT Lipid [...] 2X AVERAGE.................. 9.5 ...................... 7.0 3X AVERAGE...................>23........................>11 Zainabgeni Spannberta DELIVERY TABLE OPERATOR-REPRODUCTION PRODUCTION MANAGER LAB - CHEMISTRY ORDERAB LES Final Result Performing Organization Address City/State/[facility] Co de Phone Number [facility] [address] * CT Coronary Calcium Scoring (09/19/2024 [...] Screening exam for cardiovascular risk factors. TECHNIQUE: [facility] CQMS #436: All CT scans at [facility]: CT dose reduction technique was used, including Automated Exposure Control. Narrow [id number], CT acquisition without intravenous contrast of the [...] Screening exam for cardiovascular risk factors. TECHNIQUE: [facility] #436: All CT scans at [facility]: CT dose reduction technique wasused, including Automated Exposure Control. Narrow kuryn-df-rudl, CT acquisition without intravenous contrast of the [...] Bilat Screening W Wong (03/20/2024 1:32 PM ELECTRIC POWER MACHINE OPERATOR) Anatomical Region Laterality Modality Breast Bilateral Mammography 03/20/2024 3:39 PM ELECTRIC POWER MACHINE OPERATOR Narrative 03/20/2024 3:41 PM ELECTRIC POWER MACHINE OPERATOR DIGITAL MAMMOGRAM SCREENING BILATERAL WITH CAD CORRELATION [...] if suspicious findings are present clinically. An [employer] certified facility. [facility] Breast Centers utilize [employer] as a reminder system to notify patients of their next recommended mammograms. > Interpreting Provider: Joni Reyes MD on 03/20/2024 3:41 PM us Austin Magaña MD MAMMO ORDERABLES Final Resu lt * DEXA BONE DENSITY STUDY [id number] (11/01/2023 4:52 PM CDT) Anatomical Region Laterality [...] Most Recently Relevant to Health Maintenance Insurance [employer] [facility] HEALTH MEDICARE [facility] [employer] [facility] HEALTH TPL THIRD DEMOCRAT LIABILITY Advance Directives [...] 6:00 PM 09/26/2013 3:50 PM Care Teams Hims Clerk Relationship Specialty Start Date End Date Austin Magaña MD [address] [place] [id number] PCP - General Internal Medicine 07/11/13 Hazel Butler DO [address] [place] [address] PCP - Attributed-[employer] 04/09/21 Kel Gonzalez MD [address] [address] Physician Endocrinology 11/07/24
--- OUTSIDE RECORDS SUMMARY | 2024-12-19 02:35 | XMS_ITS | Encounter Summary ---
Author Organization [facility] Address [facility] [place] [address] Care Team Providers Care Refrigerator Room Clerk Name Role Phone Austin Magaña MD Primary Care Provider Kiran Canales MD Unavailable Unavailabl Suellen Bear MD Unavailable Peter Nuñez MD Unavailable Unavailable Encounter Details Date Type Department Care Team (Late st Contact Info) Description 06/23/2017 Abstract [facility] CONVERSION [address] [place] [address] , Generic Conversion, Social History Tobacco Use [...] on filedocumented in this encounter Care Teams Refrigerator Room Clerk Relationship Specialty Start Date End Date Austin Magaña MD [address] [place], [place] [id number] PCP - General INTERNAL MEDICINE 10/20/15 Kiran Canales MD [address] Glass Deposition Tender CARDIOVASCULAR DISEASE 10/20/15 Suellen Kennedy MD [address] [place] [id number] EP Glass Deposition Tender CLINICAL CARDIAC ELECTROPHYSIOLOGY 10/20/15 Peter Nuñez MD [address] [place] [address] Consulting Physician ENDOCRINOLOGY 10/25/18 documented as of this encounter
[2024-12-19] MEDS: LACTATED RINGERS 1,000 ML 30 ML IV CONT ×2 (06:30→13:36)
--- NOTE | 2024-12-19 06:51 | WPDANESEPPF ---
Anes - Initial Pre Proc Eval Procedure: Operation Date: 12/19/24 07:30 Proposed Procedures p Bilateral Breast Augmentation, - Camden Blount MD s Bilateral Breast Mastopexy, - Camden Blount MD s Bilateral Brachioplasty - Camden Blount MD Date/Time: 12/19/24 06:51 Surgeon: Camden Blount MD Pre Op Diagnosis: micromastia, breast ptosis, skin laxity Patient Data Age: 69 Gender: F Height: 1.6 m Weight: 72 kg Allergies Allergy/AdvReac Type Severity Reaction Status Date / Time penicillin G Allergy LIP Verified 12/11/24 13:51 SWELLING Sulfa (Sulfonamide Allergy LIP Verified 12/11/24 13:51 Antibiotics) SWELLING amiodarone AdvReac TREMORS Verified 12/11/24 13:51 Home Medications ?Medication ?Instructions ?Recorded ?Confirmed ?Type celecoxib 200 mg capsule 200 mg PO DAILY 12/11/24 12/11/24 History cinacalcet 30 mg tablet 30 mg PO BID 12/11/24 12/11/24 History furosemide 20 mg tablet 20 mg PO QAM 12/11/24 12/11/24 History irbesartan 300 mg tablet 300 mg PO QAM 12/11/24 12/11/24 History krill oil 500 mg capsule 500 mg PO DAILY 12/11/24 12/11/24 History magnesium oxide-magnesium amino 1 cap PO DAILY 12/11/24 12/11/24 History acid chelate 300 mg capsule metformin 500 mg tablet 500 mg PO QAM 12/11/24 12/11/24 History metoprolol succinate 50 mg 50 mg PO QAM 12/11/24 12/11/24 History tablet,extended release 24 hr potassium chloride 20 mEq 20 meq PO DAILY 12/11/24 12/11/24 History tablet,extended release tirzepatide 15 mg/0.5 mL 15 mg subcut WEEKLY 12/11/24 12/11/24 History subcutaneous pen injector (Mounjaro) Laboratory Tests 12/19/24 12/19/24 06:33 06:41 POC Capillary Glucose 93 mg/dl (65-105) Cotinine Negative Patient hx anesthesia problems: none Family hx anesthesia problems: none Results Review: All pre-operative results and documents have been reviewed as part of the pre-operative evaluation. [facility] Past Medical History Medical History (Updated 12/19/24 @ 06:52 by Lam Odonnell MD) HTN (hypertension) Paroxysmal A-fib Surgical History Surgical History (Updated 12/19/24 @ 06:52 by Lam Odonnell MD) History of cholecystectomy S/P gastric sleeve procedure Social History Social History Smoking packs per day: 0.5 Smoking cigarettes per day: 10.0 Years smoked: 10 Smoking pack-years: 5.00 Smoking status: Former smoker Tobacco type: cigarettes Smoking end date: 10/07/86 Alcohol intake: current Living arrangements: with family Additional living arrangements comments: [facility] Spiritual care concerns: No Anes - Eval Final PreProcedure Day of Procedure 12/19/24 06:51 Patient weight: overweight Heart: regular rate and rhythm Lungs: clear to auscultation Airway: Mallampati scale class II Neurological: alert and oriented Last oral intake: >/= 8 hours ASA classification: III Emergent: no Anesthetic plan: proceed Anesthesia type and monitoring: general ETT and standard monitoring Results Review: All pre-operative results and documents have been reviewed as part of the pre-operative evaluation. Informed Consent: The patient's anesthetic plan and its attendant risks and benefits were discussed with the patient/family/POA. Questions were solicited and answers provided to the satisfaction of the patient/family/POA.
[2024-12-19] MEDS: TRANEXAMIC ACID 1,000MG/ISO100 1,000 MG/100 ML BAG 200 MG IVPB (07:00)
--- NOTE | 2024-12-19 07:36 | WPDHPUPDATE1 ---
History and Physical Update Update Date/Time: 12/19/24 07:36 History and Physical has been reviewed, including an updated exam of the patient. There are NO changes in the patient's condition. Risks, benefits, and alternatives have been discussed and questions answered. Patient agrees to proceed with procedure.
--- NOTE | 2024-12-19 07:36 | W.PM.PROC2 ---
Procedure Note - Detailed Date of Procedure 12/19/24 Pre-op Diagnosis micromastia, breast ptosis, skin laxity Post-op Diagnosis Same Procedure Performed 1. Bilateral augmentation mastopexy with Galaflex 2. Bilateral brachioplasty Surgeon Camden Blount MD Anesthesia General Findings Bilateral Julio Saleh SoftTouch 340cc Right: REF# [id number] SN [id number] Left: REF# [id number] SN [id number] Lipoaspirate: 1,700 cc Description of Procedure She is here today for the above. Previously and again today the risks, benefits, alternatives were discussed in extensive detail. I wanted her to be very realistic about the risks involved as well as expectations. We discussed aftercare and what to monitor for. Made sure answered all of her questions to her satisfaction today and consent was obtained. Marked in the preoperative holding area with their verification. The patient was taken to the operating room placed supine on the operating table. Anesthesia was provided by anesthesiology. A surgical time-out was taken. She was prepped and draped in a standard sterile fashion. Breast Tumescent was utilized laterally to provide field block Tegaderm nipple Gomez were placed. A 15 blade used to make an incision just superior to the inframammary fold leaving a cusp of de-epithelized tissue at the t junction. Dissection was continued until the chest wall as identified. I elevated a subfascial pocket in the appropriate dimensions based on our preoperative planning for the implant. I then copiously irrigated with saline solution and verified a strict hemostasis. Next the use a triple antibiotic and Betadine containing solution to irrigate the pocket. I washed my gloves with the triple antibiotic and Betadine solution. We washed the implant immediately upon opening it with this solution and only opened it when we needed it. I used implant funnel and no-touch technique. The implant was introduced into the pocket using the funnel. Having verified positioning of the implant this was closed using 2-0 PDS. I tailor tacked the breast into position. Placed her in a sitting position. Verified the nipple-areolar location based on preoperative planning as well as intraoperative observations and measurements in full agreement. Suction lipectomy was completed laterally with a 4mm tyrone cannula. This was based on preoperative planning, intraoperative observation, and rolling pinch which was in full agreement. She was placed supine. I de-epithelialized the pedicle. I then removed the inferior central portion of the breast need making sure the implant was well protected. I elevated medial and lateral tissue flaps as well for planned closure. Secured the IMF with 2-0 PDS. Galaflex was soaking on the back table in a betadine solution. Trimmed and sutured into place with 2-0 Vicryl. I closed along the IMF with 2-0 PDS. Along the vertical with 2-0 PDS. I closed around the areola and the vertical incision with 3-0 Monocryl. 3-0 Stratafix along the IMF. I finally closed everything with running subcuticular 4-0 Monocryl and tissue glue. Brijjits placed along the vertical. Arms Stab incisions were made and I tumesced with a tumescent solution. Once adequate time for hemostasis suction lipectomy was with a 4 mm basket cannula based on S.A.F.E. technique. This was completed based on preoperative planning, intraoperative observation, and rolling pinch test which was in full agreement. I completely de-fatted the planned resection area and a strip avulsion technique was completed. Starting proximal to distal a 10 blade was used to excise the intervening skin and this was tacked as we proceed to ensure good closure. This was closed using a 2-0 Quill, 3-0 strata fix, running subcuticular 4-0 Monocryl, and tissue glue. Dressings / surgical bra were placed. Tolerated the procedure well. Taken to the PACU without difficulty. All instrument sponge counts were correct at the end of the case. Estimated Blood Loss 100 Drains No Packing No Pathology None sent Complications No immediate complications Condition Stable Disposition PACU
[2024-12-19] MEDS: NACL 0.9% IRRIG POUR BOTTLE 900 ML, GENTAMICIN SULFATE INJ 160 MG, CLINDAMYCIN PHOS INJ... IRRIGATION (07:39)
[2024-12-19] MEDS: LACTATED RINGERS IRRIG 1,000 ML, LIDOCAINE 1% LOCAL INJ 50 ML, EPINEPHrine HCL INJ 1 MG... INFILTRATE (07:39)
[2024-12-19] MEDS: ceFAZolin 2 GM in SODIUM CHLORIDE 0.9% IV 50 ML 100 ML IVPB (07:39)
[2024-12-19] MEDS: oxyCODONE HCL (*CRX) 5 MG TAB IR PO (15:45)
== END 2024-12-19 16:00 | disposition home or self-care (01) ==
PROVIDERS: Visit Provider Surgery Plastic and Reconstructive Surgery
PROC: (CPT 19325; principal; 2024-12-19 07:30)
PROC: (CPT 19316; 2024-12-19 07:30)
PROC: (CPT 15836; 2024-12-19 07:30)
DX: Z41.1 Encounter for cosmetic surgery (principal); N64.82 Hypoplasia of breast; N64.81 Ptosis of breast; L57.4 Cutis laxa senilis; Z87.891 Personal history of nicotine dependence; Z79.899 Other long term (current) drug therapy
CPT/HCPCS: 19325; 19316; 15777 ×2; 15836; 15878; 80307; 82948; J0690; A9270; J0166; J1100; J1171; J1580; J2003; J2004; J2250; J2405; J2704; J3010; J7120